=== PATIENT | female | born 1965 | race African-American/Black ===

== ENCOUNTER 2018-08-16 02:01 | Emergency (ER) | payer OTHER ==
[2018-08-16 02:20] VITALS: BP 160/97; PULSE 85; TEMP 98.5; BMI 31.3
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
== END 2018-08-16 03:12 | disposition home or self-care (01) ==
LOC: JER 02:01
DX: S09.93XA Unspecified injury of face, initial encounter (principal); Y04.2XXA Assault by strike against or bumped into by another person, initial encounter; Y93.89 Activity, other specified; Y92.118 Other place in children's home and orphanage as the place of occurrence of the external cause; Y99.0 Civilian activity done for income or pay; Y07.59 Other non-family member, perpetrator of maltreatment and neglect
CPT/HCPCS: 99281-25

== ENCOUNTER 2018-10-07 01:23 | Emergency (ER) | payer OTHER | END 2018-10-07 04:14 | disposition home or self-care (01) | LOC: JER 01:23 ==

== ENCOUNTER 2019-03-21 11:59 | Day surgery (SDC) | payer OTHER ==
[2019-03-14 14:57] VITALS: BMI 31.0
--- NOTE | 2019-03-21 11:54 | HP ---
Satellite [facility] - Chief Complaint Chief Complaint: right knee pain - Past Medical History Allergies/Adverse Reactions: Allergies Allergy/AdvReac Type Severity Reaction Status Date / Time Tetanus Vaccines and Toxoid Allergy Severe Verified 03/14/19 14:48 [Tetanus] - Current Medications Current Medications: Home Medications Medication Instructions Recorded Aspirin 81 mg PO DAILY 03/14/19 Atorvastatin Ca [Lipitor] 40 mg PO DAILY 03/14/19 Chlorthalidone 50 mg PO DAILY 03/14/19 Metformin HCl [Glucophage] 1,000 mg PO DAILY 03/14/19 Satellite Physical Exam - Physical Examination General Appearance: Well Nourished, Well Developed, Alert & Oriented x3 ENT: Clear Lung: Normal air movement Extremities: Other (right knee- +swelling, + ttp ,decr rom , nvi, xrays show grade medial and PF djd) Neurological: Intact, Alert, Oriented Satellite Impression/Plan - Impression/Plan Impression: right knee medial and PF djd Operative Procedure: right emil bicom knee replacement Date to be Performed: 03/21/19
[~2019-03-21 11:59] MED LIST: MAG HYDROX/AL HYDROX/SIMETH 30 ML UNIT-DOSE CUP PO PRN; ONDANSETRON 4 MG/2 ML VIAL IVPUSH PRN
[2019-03-21] MEDS ORDERED: LACTATED RINGERS SOLUTION 1,000 ML IV SCH ×2 (12:00→13:45)
[2019-03-21] MEDS ORDERED: MIDAZOLAM HCL 2 MG/2 ML SINGLE DOSE VIAL ONE ×3 (12:08→13:57)
[2019-03-21] MEDS ORDERED: BUPIVACAINE LIPOSOME/PF (EXPAREL) 266 MG/20 ML VIAL ONE (12:09)
[2019-03-21] MEDS ORDERED: SODIUM CHLORIDE 0.9% P/F 10 ML VIAL IJ ONE (12:09)
[2019-03-21] MEDS ORDERED: CELECOXIB 200 MG CAPSULE PO ONE (12:18)
[2019-03-21] MEDS ORDERED: BUPIVICAINE 0.25%/MORPH PF/KETOROLAC - 51ML DISP.SYRINGE IA ONE ×2 (12:18→14:43)
[2019-03-21] MEDS ORDERED: TRANEXAMIC ACID 1000 MG/10 ML VIAL IVPUSH ONE (12:18)
[2019-03-21] MEDS ORDERED: CEFAZOLIN 2 GM in DEXTROSE 5%-WATER - 50 ML IVPB ONE (12:18)
[2019-03-21] MEDS ORDERED: THROMBIN (RECOMBINANT) 5,000 UNIT VIAL TP ONE (12:31)
[2019-03-21] MEDS ORDERED: GELATIN, ABSORBABLE 12-7MM EACH SPONGE TP ONE (12:31)
[2019-03-21] MEDS ORDERED: ceFAZolin SODIUM 1 GM VIAL ONE ×2 (12:37→14:02)
[2019-03-21] MEDS ORDERED: BUPIVACAINE HCL/PF 0.5% (5MG/ML) 10 ML VIAL ONE (12:44)
[2019-03-21] MEDS ORDERED: ONDANSETRON 4 MG/2 ML VIAL IVPUSH PRN (13:34)
[2019-03-21] MEDS ORDERED: traMADol HCL 50 MG TABLET PO PRN (13:34)
[2019-03-21] MEDS ORDERED: oxyCODONE HCL 5 MG TABLET PO PRN (13:34)
[2019-03-21] MEDS ORDERED: TRANEXAMIC ACID 1000 MG/10 ML VIAL ONE (14:02)
[2019-03-21] MEDS ORDERED: ONDANSETRON 4 MG/2 ML VIAL ONE (14:04)
[2019-03-21] MEDS ORDERED: DEXAMETHASONE SOD PHOSPHATE 4 MG/1 ML VIAL ONE (14:04)
--- NOTE | 2019-03-21 16:14 | OP ---
Operative Note - Note: Operative Date: 03/21/19 (eugene) Pre-Operative Diagnosis: right knee djd Operation: right emil bicompartmental knee replacement Post-Operative Diagnosis: Same as Pre-op Surgeon: Hernando Martinez Italian Teacher: Carlo Del Real Anesthesiologist/RN MED SURG: Renetta Jeffries Anesthesia: Spinal, Local Specimens Removed: bone fragments Estimated Blood Loss (mls): 150
--- NOTE | 2019-03-21 16:52 | OP ---
DATE OF OPERATION: 03/21/2019 PREOPERATIVE DIAGNOSIS: Right knee medial and patellofemoral compartment osteoarthritis. POSTOPERATIVE DIAGNOSIS: Right knee medial and patellofemoral compartment osteoarthritis. OPERATION: Right knee bicompartmental MAKOplasty, partial knee replacement. SURGEON: Hernando Martinez MD CHILD LIFE ASSISTANT: MACIEL Pal ANESTHESIA: Renetta Jeffries CRNA, spinal anesthesia with MAC. An intra-articular injection of 0.25%, 40 mL bupivacaine, 30 mg/1 mL ketorolac, 5 mg/10 mL Duramorph. DRAINS: None. SPECIMEN: Bone and cartilage, right knee. BLOOD LOSS: Minimal. BLOOD GIVEN: None. FLUID REPLACEMENT: 1500 mL Plasma-Lyte. INDICATIONS: This patient is a 53-year-old female with a preoperative diagnosis of significant right knee pain with medial and patellofemoral compartment osteoarthritis. After understanding the potential risks, complications, alternatives, and benefits to surgery versus nonsurgical treatment, the patient elected to undergo this procedure. DESCRIPTION OF PROCEDURE: Patient was brought to the operating room, peripheral IV placed, IV sedation given, 2 gm IV Ancef were given. Spinal anesthesia was induced. MAC anesthesia was induced. She was placed into supine position with a tourniquet around the right upper thigh. Right lower extremity was prepped and draped in a sterile fashion, put into the MAKOplasty knee replacement leg hi in a standard fashion. A longitudinal incision was marked out with a marking pen and the skin incision made with a No. 10 scalpel blade. Subcutaneous hemostasis was achieved with a Bovie cautery. Dissection was done down through the medial knee retinaculum, and a medial parapatellar arthrotomy incision was performed. Self-retaining Weitlaner retractors were placed into the wound. Intra-articular synovial fluid was evacuated. Patient had a tremendous amount of synovitis and fat in the knee itself, and this was removed. This exposed the joint. We put in the check points in the tibia and the femur and registration with the Anke robot was performed. Once this was done, we marked out the distal femur and the proximal tibia with 40 check points and adjusted the preoperative virtual plan appropriately for a better fit and degree of planned ligamentous laxity versus tightness. It all came together quite well. There was excellent range of motion with the appropriate flexion and extension tightness. Next, using the MAKOplasty robot articulated arm, we took out the appropriate amount of cartilage and bony in the femoral trochlea, the distal medial femur, the proximal medial tibia. I also used a clamp, measured to remove 10 mm, and did cut in the undersurface of the patella. I then freehand an additional 2 mm out until it was uniformly 13 mm around. I measured a 35 mm patellar button. It looked good. It fit into the appropriate position, and we drilled 3 holes. The area was copiously irrigated and washed out, trial implants inserted. It was a No. 35 patella, which was 10 mm thick, a No. 4 femoral trochlear component, a No. 4 tibial component, and an 8-mm polyethylene. The leg had an excellent range of motion, no instability. The medial and lateral degree of laxity was perfect. The patella seemed to be tracking quite well in the femoral trochlea. Next, the right lower extremity was elevated, exsanguinated with an Esmarch bandage, the tourniquet inflated to 275 mmHg. Thrombin-soaked Gelfoam was placed onto the exposed cancellous surfaces for hemostasis. On the back table, we mixed 1 bag of Simplex cement, precoated the actual components, which again were a No. 4 femoral trochlea, a No. 35 patella polyethylene button, No. 4 tibial baseplate, and the No 4 femur. We put in the femoral trochlea 1st and packed it in place, removed excess cement then the femoral component doing the same sequence and then the tibial component. We then put in the patella button with the clamp, removed excess cement globally, and put in an 8-mm polyethylene tibial tray for compression. Seem to have excellent range of motion in all planes. No instability but there did seem to be about 1 degree of hyperextension. We put the leg into straight neutral until the cement was dry. I then put in a No. 9 polyethylene implant trial that seemed to be quite good and eliminated the posterior 1-degree of excessive extension. The knee was now in neutral. There was excellent range of motion. No instability. Overall, it fit quite well with no blocked motion. The area was copiously irrigated and washed out. The medial peripatellar arthrotomy, quadriceps, and retinaculum incisions were closed [id number] No. 1 Ti-Cron sutures. The deep dermal layer was closed with 2-0 Vicryl sutures. Final skin reapproximation was done with a running subcuticular 4-0 V-Lock suture. The area was then washed and dried, covered with a 10-inch Aquacel dressing. Tourniquet was up for about 25 minutes. Total operative time about 1 hour. There were no complications during the case. The patient tolerated the procedure quite well. Nannette [id number]
[2019-03-21] MEDS: ACETAMINOPHEN 325 MG TABLET (FP) PO SCH ×4 (17:00→21:23)
[2019-03-21] MEDS: INSULIN SLIDING SCALE (NOVOLOG) 1 VIAL SQ SCH ×3 (17:21→21:37)
[2019-03-21] MEDS ORDERED: ACETAMINOPHEN 325 MG TABLET (FP) ONE (17:44)
[2019-03-21] MEDS: CEFAZOLIN 2 GM/D5W 2 GM/50 ML ML IVPB SCH (21:22)
[2019-03-21] MEDS: oxyCODONE HCL 10 MG SUSTAINED ACTING TABLET PO SCH (21:23)
[2019-03-21] MEDS: SENNOSIDES/DOCUSATE COMBO (SENNA PLUS) TABLET (UD) PO SCH (21:24)
[2019-03-22] MEDS: oxyCODONE HCL 5 MG TABLET PO PRN ×3 (02:12→10:34)
[2019-03-22] MEDS: ACETAMINOPHEN 325 MG TABLET (FP) PO SCH ×2 (02:13→10:32)
[2019-03-22] MEDS: CEFAZOLIN 2 GM/D5W 2 GM/50 ML ML IVPB SCH (05:25)
[2019-03-22] MEDS: INSULIN SLIDING SCALE (NOVOLOG) 1 VIAL SQ SCH ×3 (06:16→11:52)
[2019-03-22 06:43] VITALS: PULSE 56
[2019-03-22] MEDS ORDERED: metFORMIN HCL 500 MG TABLET (FP) PO SCH (07:00)
[2019-03-22] MEDS ORDERED: ASPIRIN 325 MG TABLET PO SCH (08:00)
--- NOTE | 2019-03-22 09:01 | PN ---
Progress Note (short form) - Note Progress Note: Ortho Pt seen and examined s/p left emil bicom knee replacement pod #1 Selected Entries 03/22/19 06:00 Temperature 98.5 F Pulse Rate 56 L Respiratory 18 Rate Blood Pressure 120/75 dressing c/d/i, calf soft, nt rom 0-30, nvi a/p PT dvt ppx pain control d/c home today f/u in 1 week
[2019-03-22 09:03] VITALS: BP 137/77; TEMP 97.8
--- NOTE | 2019-03-22 09:03 | DS ---
Physical Examination Vital Signs: Vital Signs Temperature 98.5 F 03/22/19 06:00 Pulse Rate 56 L 03/22/19 06:00 Respiratory Rate 18 03/22/19 06:00 Blood Pressure 120/75 03/22/19 06:00 O2 Sat by Pulse Oximetry (%) 98 03/22/19 06:00 Discharge Summary Problems reviewed: Yes Reason For Visit: OSTEOARTHRITIS Procedures: Principal: right emil bicom knee replacement Hospital Course: admitted for elective right emil bicom knee replacement, post-op as per protocol , stable for d/c Condition: Good - Instructions Diet, Activity, Other Instructions: Post-op Instructions-Partial Knee Replacement Call the office for a follow-up appointment in 1 week - [phone] Aspirin 325mg daily for 6 weeks. Pain medication was sent into your pharmacy. Apply Graduated Compression Stockings (TEDs) to both lower extremities- remove daily for hygiene ONLY Apply Sequential Compression Device (SCDs) to both Lower extremities remove for PT and hygiene ONLY Apply cold packs to affected area for 15 minutes every 2 hours. Physical Therapist will come to your home for the first 5 days. You will be set up with outpatient PT at your first post-operative visit. Patient may ambulate as tolerated-encourage self care (at least every 2-3 hours while awake) with walker or cane Maintain Aquacel (waterproof) dressing to operative wound (will be removed by surgeon at first office visit) Shower with Aquacel dressing in place-if Aquacel integrity compromised, remove and apply dry sterile dressing and notify Orthopedist. DO NOT SHOWER unless Orthopedists approves without Aquacel dressing CONTACT THE OFFICE FOR ANY CHANGE IN YOUR CONDITION (for example-fever greater than 102 degrees, excessive bleeding from operative site, purulent drainage, severe swelling or pain) GO TO THE EMERGENCY ROOM IF THERE IS A MEDICAL EMERGENCY Knee Precautions: * Keep a rolled towel under affected heel while in bed or chair (to keep knee in extension) * Keep affected leg elevated except during mealtimes * DO NOT PLACE PILLOW UNDER AFFECTED KNEE * If you have any questions, please do not hesitate to call the office - . Referrals: Hernando Martinez MD [Staff Physician] - - Home Medications Comprehensive Discharge Medication List: Ambulatory Orders Atorvastatin Ca [Lipitor] 40 mg PO DAILY 03/14/19 Chlorthalidone 50 mg PO DAILY 03/14/19 Metformin HCl [Glucophage] 1,000 mg PO DAILY 03/14/19 Aspirin [ASA -] 325 mg PO DAILY@0800 tablet 03/21/19 Oxycodone HCl/Acetaminophen [Percocet 5-325 mg Tablet -] 1 - 2 tab PO Q6H #50 tab MDD 8 03/21/19
[2019-03-22] MEDS ORDERED: CHLORTHALIDONE 25 MG TABLET PO SCH (10:00)
[2019-03-22] MEDS ORDERED: MULTIVITAMINS (DAILY MVI) TABLET (FP) PO SCH (10:00)
[2019-03-22] MEDS ORDERED: ATORVASTATIN CA 40 MG TABLET (FP) PO SCH (10:00)
[2019-03-22] MEDS ORDERED: PANTOPRAZOLE 40 MG TABLET (FP) PO SCH (10:00)
[2019-03-22] MEDS: oxyCODONE HCL 10 MG SUSTAINED ACTING TABLET PO SCH (10:30)
[2019-03-22] MEDS: SENNOSIDES/DOCUSATE COMBO (SENNA PLUS) TABLET (UD) PO SCH (10:32)
== END 2019-03-22 11:58 | disposition home or self-care (01) ==
LOC: FASUSAT 11:59 → FM/S 17:35 → FASUSAT 03-22 11:58
PROVIDERS: ATTEND Orthopaedic Surgery
PROC: 8E0YXBZ Computer Assisted Procedure of Lower Extremity (ICD-10-PCS; 2019-03-21)
PROC: 0QRD0JZ Replacement of Right Patella with Synthetic Substitute, Open Approach (ICD-10-PCS; 2019-03-21)
PROC: 8E0YXBZ Computer Assisted Procedure of Lower Extremity (ICD-10-PCS; 2019-03-21)
PROC: 8E0Y0CZ Robotic Assisted Procedure of Lower Extremity, Open Approach (ICD-10-PCS; 2019-03-21)
PROC: 0SRC0L9 Replacement of Right Knee Joint with Medial Unicondylar Synthetic Substitute, Cemented, Open Approach (ICD-10-PCS; principal; 2019-03-21 14:20)
DX: M17.11 Unilateral primary osteoarthritis, right knee (principal)
CPT/HCPCS: 20985; 27438; 27446; C1776; S2900; 73560-TC-RT-FY; 82962; 94760; 97116-GP; 97161-GP

== ENCOUNTER 2019-03-25 13:55 | Inpatient (IN) | payer OTHER ==
[2019-03-25] MEDS ORDERED: SODIUM CHLORIDE 1,000 ML IV STA (15:58)
[2019-03-25] MEDS ORDERED: ONDANSETRON 4 MG/2 ML VIAL IVPB ONE (15:58)
[2019-03-25] MEDS ORDERED: ONDANSETRON 4 MG/2 ML VIAL ONE (16:17)
--- NOTE | 2019-03-25 16:37 | PDOC ---
Documentation entered by Lotus Goldsmith SCRIBE, acting as scribe for Sarthak Winter MD. Sarthak Winter MD: This documentation has been prepared by the Agus brown Joy, SCRIBE, under my direction and personally reviewed by me in its entirety. I confirm that the documentation accurately reflects all work, treatment, procedures, and medical decision making performed by me. History of Present Illness - General Chief Complaint: Redness To Affected Area Stated Complaint: RIGHT KNEE REDNESS Time Seen by Provider: 03/25/19 13:58 History Source: Patient Exam Limitations: No Limitations - History of Present Illness Initial Comments: 03/25/19 16:21 The patient is a 53 year old female with significant past medical history of DM and HTN, POD #4 from R knee arthroplasty, who presents to the ED with a fever and redness/swelling to her R knee. As per patient, she woke up last night with a fever. She took her temperature at 3 am last night, tmax: 102.2 F and at 10: 30 am today 101 F. Patient took Tylenol (500 mg) and aspirin with no relief. Pt states that she did not have any redness or swelling to her knee yesterday and was doing well post-operatively until this morning. Denies shortness of breath, chest pain, vomiting. Denies any other symptoms. Allergies: Tetanus vaccines and toxoid Surgical Hx: Partial right knee replacement (Dr. Martinez), appendectomy, cholecystectomy, partial hysterectomy, and partial colon resection. Past History - Past Medical History Allergies/Adverse Reactions: Allergies Allergy/AdvReac Type Severity Reaction Status Date / Time Tetanus Vaccines and Toxoid Allergy Severe Verified 03/25/19 13:57 [Tetanus] Home Medications: Ambulatory Orders Atorvastatin Ca [Lipitor] 40 mg PO DAILY 03/14/19 Metformin HCl [Glucophage] 1,000 mg PO DAILY 03/14/19 Aspirin [ASA -] 325 mg PO DAILY@0800 tablet 03/21/19 Oxycodone HCl/Acetaminophen [Percocet 5-325 mg Tablet -] 1 - 2 tab PO Q6H #50 tab MDD 8 03/21/19 Carvedilol 3.125 mg PO BID 03/25/19 Losartan Potassium 25 mg PO DAILY 03/25/19 Anemia: No Asthma: No Cancer: No Cardiac Disorders: No CVA: No COPD: No CHF: No Dementia: No Diabetes: Yes GI Disorders: Yes (HX INTESTINAL OBSTR) Disorders: No HTN: Yes Hypercholesterolemia: Yes Liver Disease: No Seizures: No Thyroid Disease: No - Surgical History Abdominal Surgery: Yes (colectomy w/clips) Appendectomy: Yes Cardiac Surgery: No Cholecystectomy: Yes Lung Surgery: No Neurologic Surgery: No Orthopedic Surgery: No - Immunization History Immunization Up to Date: Yes - Psycho Social/Smoking Cessation Hx Smoking Status: No Smoking History: Never smoked Have you smoked in the past 12 months: No Number of Cigarettes Smoked Daily: 0 If you are a former smoker, when did you quit?: 2001 Information on smoking cessation initiated: No Hx Alcohol Use: No Drug/Substance Use Hx: No Substance Use Type: None Hx Substance Use Treatment: No Review of Systems - Review of Systems Able to Perform ROS?: Yes Comments:: 03/25/19 16:21 GENERAL/CONSTITUTIONAL: +Fever, chills. No weakness. HEAD, EYES, EARS, NOSE AND THROAT: No change in vision. No ear pain or discharge. No sore throat. CARDIOVASCULAR: No chest pain, no shortness of breath, no loss of consciousness RESPIRATORY: No cough, wheezing, or hemoptysis. GASTROINTESTINAL: +Nausea. No vomiting, diarrhea or constipation. GENITOURINARY: No dysuria, frequency, or change in urination. MUSCULOSKELETAL: +Right knee pain, swelling and redness. No neck or back pain. SKIN: No rash NEUROLOGIC: No vertigo, no change in strength/sensation. ENDOCRINE: No increased thirst. No abnormal weight change. HEMATOLOGIC/LYMPHATIC: No anemia, easy bleeding, or history of blood clots. ALLERGIC/IMMUNOLOGIC: No hives or skin allergy. *Physical Exam - Vital Signs Last Vital Signs Temp Pulse Resp BP Pulse Ox 98.2 F 76 18 137/90 99 03/25/19 13:55 03/25/19 13:55 03/25/19 13:55 03/25/19 13:55 03/25/19 13:55 - Physical Exam Comments: 03/25/19 16:21 GENERAL: Awake, alert, and fully oriented, in no acute distress. HEAD: No signs of trauma EYES: PERRLA, EOMI, sclera anicteric, conjunctiva clear ENT: Auricles normal inspection, hearing grossly normal, nares patent, oropharynx clear without exudates. Moist mucosa NECK: Nontender, no stepoffs, Normal ROM, supple, no lymphadenopathy, JVD, or masses LUNGS: Breath sounds equal, clear to auscultation bilaterally. No wheezes, and no crackles HEART: Regular rate and rhythm, normal S1 and S2, no murmurs, rubs or gallops ABDOMEN: Soft, nontender, normoactive bowel sounds. No guarding, no rebound. No masses EXTREMITIES: + R knee with surgical incision, no drainage, + surrounding erythema and edema, ROM slightly limited 2/2 pain NEUROLOGICAL: Cranial nerves II through XII intact. 5/5 strength and sensation in all extremities, Normal speech, normal gait, normal cerebellar function SKIN: Warm, Dry, normal turgor, no rashes or lesions noted. ED Treatment Course - LABORATORY CBC & Chemistry Diagram: 03/25/19 16:50 03/25/19 16:50 Medical Decision Making - Medical Decision Making 03/25/19 16:40 53 F, POD 4 from R knee arthroplasty, presenting with redness and swelling around surgical incision. - Labs, cultures - c/s Dr. Martinez - IV abx 03/25/19 18:[address] Painter, who agrees with plan to admit for IV abx. 03/25/19 18:[address] Villa Discharge - Discharge Information Problems reviewed: Yes Clinical Impression/Diagnosis: Post op infection Condition: Stable - Admission Yes - Follow up/Referral - Patient Discharge Instructions - Post Discharge Activity
[2019-03-25 17:10] LABS: HEMATOCRIT 36.9 % (32.4-45.2); MEAN PLT VOLUME 8.4 fl (7.5-11.1)
[2019-03-25 17:11] LABS: BASO % 0.7 % (0-2.0); EOS % 7.9 % (0-4.5); HEMOGLOBIN 12.4 GM/dl (10.7-15.3); LYMPH % 29.1 % (8-40); MCH 29.1 pg (25.7-33.7); MCHC 33.6 g/dl (32.0-36.0); MEAN CELL VOLUME 86.7 fl (80-96); MONO % 4.8 % (3.8-10.2); NEUT % 57.5 % (42.8-82.8); PLATELET COUNT 390 K/MM3 (134-434); RBC 4.26 M/mm3 (3.60-5.2); RDW 11.8 % (11.6-15.6)
[2019-03-25 17:25] LABS: ALBUMIN 3.6 g/dl (3.4-5.0); BILIRUBIN,TOTAL 0.9 mg/dl (0.2-1); CREATININE 0.7 mg/dl (0.55-1.3); TOT PROT 7.4 g/dl (6.4-8.2)
[2019-03-25 17:40] LABS: ACTIVATED PTT 31.8 SECONDS (25.2-36.5); INR 1.2 (0.82-1.09); PROTHROMBIN TIME (PATIENT) 13.4 SEC (10.2-13.0)
[2019-03-25 17:59] LABS: VENOUS PC02 50.2 mmHg (38-52); VENOUS PH 7.37 (7.31-7.41); VENOUS PO2 < 49 mmHg (28-48)
[2019-03-25] MEDS ORDERED: PIPERACILLIN/TAZOB 4.5 GM 4.5 GM/100 ML BAG IVPB ONE (18:03)
[2019-03-25] MEDS ORDERED: VANCOMYCIN 1 GM in D5W (PRE-DOCKED) 1,000 MG/250 ML IVPB ONE (18:03)
[2019-03-25 18:05] LABS: EPITHELIAL CELLS RARE /hpf
[2019-03-25] MEDS ORDERED: PIPERACILLIN/TAZOBACTAM 4.5 GM VIAL IVPB ONE (18:17)
[2019-03-25] MEDS ORDERED: VANCOMYCIN 1,000 MG VIAL (RESTRICTED TO ID ONLY) ONE (18:17)
[2019-03-25 18:18] LABS: CALCIUM 9.3 mg/dL (8.5-10.1); POTASSIUM 4.2 mmol/L (3.5-5.1)
[2019-03-25] MEDS ORDERED: SODIUM CHLORIDE 1,000 ML IV SCH (19:15)
[2019-03-25 20:23] VITALS: BMI 32.3
[2019-03-25] MEDS: HEPARIN NA (PORCINE) 5,000 UNITS/ML 1ML VIAL SQ SCH (21:45)
[2019-03-25] MEDS: CARVEDILOL 3.125 MG TABLET (FP) PO SCH (21:45)
[2019-03-25] MEDS: ATORVASTATIN CA 40 MG TABLET (FP) PO SCH (21:46)
--- NOTE | 2019-03-25 22:50 | HP ---
Admitting History and Physical - Past Medical History ...LMP Comment: 53 YEARS OLD - Smoking History Smoking history: Never smoked Have you smoked in the past 12 months: No Aproximately how many cigarettes per day: 0 If you are a former smoker, when did you quit?: 2001 - Alcohol/Substance Use Hx Alcohol Use: Yes (OCCASIONAL) Home Medications - Allergies Allergies/Adverse Reactions: Allergies Allergy/AdvReac Type Severity Reaction Status Date / Time Tetanus Vaccines and Toxoid Allergy Severe Verified 03/25/19 13:57 [Tetanus] - Home Medications Home Medications: Ambulatory Orders Atorvastatin Ca [Lipitor] 40 mg PO DAILY 03/14/19 Metformin HCl [Glucophage] 1,000 mg PO DAILY 03/14/19 Aspirin [ASA -] 325 mg PO DAILY@0800 tablet 03/21/19 Oxycodone HCl/Acetaminophen [Percocet 5-325 mg Tablet -] 1 - 2 tab PO Q6H #50 tab MDD 8 03/21/19 Carvedilol 3.125 mg PO BID 03/25/19 Losartan Potassium 25 mg PO DAILY 03/25/19 Physical Examination Vital Signs: Vital Signs Temperature 98.0 F 03/25/19 20:15 Pulse Rate 68 03/25/19 20:15 Respiratory Rate 18 03/25/19 20:15 Blood Pressure 121/74 03/25/19 20:15 O2 Sat by Pulse Oximetry (%) 98 03/25/19 20:15 Labs: CBC, BMP 03/25/19 16:50 03/25/19 16:50
--- NOTE | 2019-03-25 23:18 | HP ---
Admitting History and Physical - Admission Chief Complaint: right knee pain History of Present Illness: 53 year old female PMHx HTN, DM2, recent right knee arthroplasty and partial replacement, POD #4, presents with fevers, right knee redness and warmth since yesterday. She states tmax was 102. Had no problem with ambulation. Denies CP, SOB, palpitations, n/v/d. PMHx: as above PSHx: Partial right knee replacement (Dr. Martinez) appendectomy cholecystectomy partial hysterectomy partial colon resection History Source: Patient Limitations to Obtaining History: No Limitations - Past Medical History Cardiovascular: Yes: HTN ...LMP Comment: 53 YEARS OLD Endocrine: Yes: Diabetes Mellitus - Past Surgical History Past Surgical History: Yes: Appendectomy, Arthrosocopy, Cholecystectomy, Colectomy, Hysterectomy - Smoking History Smoking history: Never smoked Have you smoked in the past 12 months: No Aproximately how many cigarettes per day: 0 If you are a former smoker, when did you quit?: 2001 - Alcohol/Substance Use Hx Alcohol Use: Yes (OCCASIONAL) History of Substance Use: reports: None - Social History Usual Living Arrangement: Yes: Alone Home Medications - Allergies Allergies/Adverse Reactions: Allergies Allergy/AdvReac Type Severity Reaction Status Date / Time Tetanus Vaccines and Toxoid Allergy Severe Verified 03/25/19 13:57 [Tetanus] - Home Medications Home Medications: Ambulatory Orders Atorvastatin Ca [Lipitor] 40 mg PO DAILY 03/14/19 Metformin HCl [Glucophage] 1,000 mg PO DAILY 03/14/19 Aspirin [ASA -] 325 mg PO DAILY@0800 tablet 03/21/19 Oxycodone HCl/Acetaminophen [Percocet 5-325 mg Tablet -] 1 - 2 tab PO Q6H #50 tab MDD 8 03/21/19 Carvedilol 3.125 mg PO BID 03/25/19 Losartan Potassium 25 mg PO DAILY 03/25/19 Family Medical History Family History: Unremarkable Review of Systems - Review of Systems Constitutional: reports: Chills, Fever Eyes: reports: No Symptoms HENT: reports: No Symptoms Neck: reports: No Symptoms Cardiovascular: reports: No Symptoms Respiratory: reports: No Symptoms Gastrointestinal: reports: No Symptoms Genitourinary: reports: No Symptoms Breasts: reports: No Symptoms Reported Musculoskeletal: reports: No Symptoms Integumentary: reports: No Symptoms Neurological: reports: No Symptoms Endocrine: reports: No Symptoms Hematology/Lymphatic: reports: No Symptoms Psychiatric: reports: No Symptoms Physical Examination Vital Signs: Vital Signs Temperature 98.5 F 03/25/19 22:00 Pulse Rate 58 L 03/25/19 22:00 Respiratory Rate 18 03/25/19 22:00 Blood Pressure 119/60 03/25/19 22:00 O2 Sat by Pulse Oximetry (%) 99 03/25/19 22:00 Constitutional: Yes: Well Nourished, No Distress, Calm Eyes: Yes: WNL, Conjunctiva Clear, EOM Intact HENT: Yes: WNL, Atraumatic, Normocephalic Neck: Yes: WNL, Supple, Trachea Midline Cardiovascular: Yes: WNL, Regular Rate and Rhythm Respiratory: Yes: WNL, Regular, CTA Bilaterally Gastrointestinal: Yes: WNL, Normal Bowel Sounds, Soft Musculoskeletal: Yes: Other (right knee in stocking, warm, pain to palpation, no draniage or open wound, erythema, leg leg unremarkable, good pulses bilaterally) Edema: No Peripheral Pulses WNL: Yes Neurological: Yes: WNL, Alert, Oriented Labs: CBC, BMP 03/25/19 16:50 03/25/19 16:50 Imaging - Results Chest X-ray: Report Reviewed, Image Reviewed Problem List - Problems (1) DM2 (diabetes mellitus, type 2) Code(s): E11.9 - TYPE 2 DIABETES MELLITUS WITHOUT COMPLICATIONS (2) Post op infection Code(s): T81.40XA - INFECTION FOLLOWING A PROCEDURE, UNSPECIFIED, INIT (3) HTN (hypertension) Code(s): I10 - ESSENTIAL (PRIMARY) HYPERTENSION Assessment/Plan 53 year old female, POD 4 from R knee arthroplasty, presenting with redness and swelling around surgical incision 1) Post op knee infection, r/o septic joint -pancultured -broad spectrum abx -ID and ortho eval -pain control -IVF -right knee xray -resume asa -heparin dvt ppx 2) DM2 resume home meds ISS needs tight BS control 3) HTN resume home meds
[2019-03-26] MEDS ORDERED: PIPERACILLIN/TAZOB 3.375 GM 3.375 GM in DEXTROSE 5%-WATER - 50 ML IVPB SCH (02:00)
[2019-03-26] MEDS ORDERED: DEXTROSE 5%-WATER - 50 ML IVPB ONE ×2 (02:01→09:44)
[2019-03-26] MEDS ORDERED: PIPERACILLIN/TAZOBACTAM 3.375 GM VIAL IVPB ONE ×2 (02:01→09:43)
[2019-03-26] MEDS: PIPERACILLIN/TAZOB 3.375 GM 3.375 GM in DEXTROSE 5%-WATER - 50 ML IVPB SCH ×2 (02:10→10:29)
[2019-03-26] MEDS ORDERED: metFORMIN HCL 500 MG TABLET (FP) PO SCH (07:00)
[2019-03-26] MEDS ORDERED: INSULIN SLIDING SCALE (NOVOLOG) 1 VIAL SQ SCH ×2 (07:00)
[2019-03-26] MEDS: ASPIRIN 325 MG TABLET PO SCH (08:19)
[2019-03-26 08:38] LABS: BASO % 0.7 % (0-2.0); EOS % 8.5 % (0-4.5); HEMATOCRIT 31.3 % (32.4-45.2); HEMOGLOBIN 10.2 GM/dl (10.7-15.3); LYMPH % 28.3 % (8-40); MCH 28.8 pg (25.7-33.7); MCHC 32.5 g/dl (32.0-36.0); MEAN CELL VOLUME 88.4 fl (80-96); MEAN PLT VOLUME 8.1 fl (7.5-11.1); MONO % 4.4 % (3.8-10.2); NEUT % 58.1 % (42.8-82.8); PLATELET COUNT 333 K/MM3 (134-434); RBC 3.54 M/mm3 (3.60-5.2); WHITE BLOOD COUNT 7.6 K/mm3 (4.0-10.8)
--- NOTE | 2019-03-26 08:54 | PN ---
Physical Exam: SUBJECTIVE: Patient seen and examined at bedside., c/o Rt knee itching. Denies fever, chills, cp, sob, palpitations,abdominal pain, N/V/D or urinary symptoms. OBJECTIVE: Vital Signs Period Temp Pulse Resp BP Sys/Rodríguez Pulse Ox Last 24 Hr 98.0 F-98.5 F 58-76 16-19 115-145/56-90 96-99 GENERAL: The patient is awake, alert, and fully oriented, in no acute distress. HEAD: Normal with no signs of trauma. EYES: PERRL, extraocular movements intact, sclera anicteric, conjunctiva clear. No ptosis. ENT: Ears normal, nares patent, oropharynx clear without exudates, moist mucous membranes. NECK: Trachea midline, full range of motion, supple. LUNGS: Breath sounds equal, clear to auscultation bilaterally, no wheezes, no crackles, no accessory muscle use. HEART: Regular rate and rhythm, S1, S2 without murmur, rub or gallop. ABDOMEN: Soft, nontender, nondistended, normoactive bowel sounds, no guarding, no rebound, no hepatosplenomegaly, no masses. EXTREMITIES: 2+ pulses, warm, well-perfused, no edema. RT knee dsg intact NEUROLOGICAL: Cranial nerves II through XII grossly intact. Normal speech, gait not observed. PSYCH: Normal mood, normal affect. SKIN: Warm, dry, normal turgor, no rashes or lesions noted Laboratory Results - last 24 hr 03/25/19 03/25/19 03/25/19 16:50 16:50 16:50 WBC 9.0 RBC 4.26 Hgb 12.4 Hct 36.9 MCV 86.7 MCH 29.1 MCHC 33.6 RDW 11.8 Plt Count 390 MPV 8.4 Absolute Neuts (auto) 5.2 Neutrophils % 57.5 Lymphocytes % 29.1 Monocytes % 4.8 Eosinophils % 7.9 H Basophils % 0.7 PT with INR 13.4 H INR 1.20 PTT (Actin FS) 31.8 VBG pH POC VBG pCO2 POC VBG pO2 VBG HCO3 VBG O2 Sat (Slade) VBG Base Excess Sodium 135 L Potassium 4.2 Chloride 102 Carbon Dioxide 29 Anion Gap 4 L BUN 15.0 Creatinine 0.7 Est GFR (CKD-EPI)AfAm 115.45 Est GFR (CKD-EPI)NonAf 99.62 POC Glucometer Random Glucose 127 H Lactic Acid Calcium 9.3 Total Bilirubin 0.9 AST 79 H ALT 41 Alkaline Phosphatase 138 H Total Protein 7.4 Albumin 3.6 Urine Color Urine Appearance Urine pH Urine Protein Urine Glucose (UA) Urine Ketones Urine Blood Urine Nitrite Urine Bilirubin Urine Urobilinogen Ur Leukocyte Esterase Urine RBC Urine WBC Ur Transition Epith Cell Urine Bacteria 03/25/19 03/25/19 03/25/19 16:50 16:50 17:26 WBC RBC Hgb Hct MCV MCH MCHC RDW Plt Count MPV Absolute Neuts (auto) Neutrophils % Lymphocytes % Monocytes % Eosinophils % Basophils % PT with INR INR PTT (Actin FS) VBG pH 7.37 POC VBG pCO2 50.2 POC VBG pO2 < 49 H VBG HCO3 28.6 VBG O2 Sat (Slade) 63.1 L VBG Base Excess 3.1 H Sodium Potassium Chloride Carbon Dioxide Anion Gap BUN Creatinine Est GFR (CKD-EPI)AfAm Est GFR (CKD-EPI)NonAf POC Glucometer Random Glucose Lactic Acid 1.5 Calcium Total Bilirubin AST ALT Alkaline Phosphatase Total Protein Albumin Urine Color Yellow Urine Appearance Clear Urine pH 5.0 Urine Protein Negative Urine Glucose (UA) Negative Urine Ketones Negative Urine Blood Trace-intact Urine Nitrite Negative Urine Bilirubin Negative Urine Urobilinogen 0.2 Ur Leukocyte Esterase Negative Urine RBC 2-5 Urine WBC 0-2 Ur Transition Epith Cell Rare Urine Bacteria Rare 03/26/19 06:18 WBC RBC Hgb Hct MCV MCH MCHC RDW Plt Count MPV Absolute Neuts (auto) Neutrophils % Lymphocytes % Monocytes % Eosinophils % Basophils % PT with INR INR PTT (Actin FS) VBG pH POC VBG pCO2 POC VBG pO2 VBG HCO3 VBG O2 Sat (Slade) VBG Base Excess Sodium Potassium Chloride Carbon Dioxide Anion Gap BUN Creatinine Est GFR (CKD-EPI)AfAm Est GFR (CKD-EPI)NonAf POC Glucometer 132 Random Glucose Lactic Acid Calcium Total Bilirubin AST ALT Alkaline Phosphatase Total Protein Albumin Urine Color Urine Appearance Urine pH Urine Protein Urine Glucose (UA) Urine Ketones Urine Blood Urine Nitrite Urine Bilirubin Urine Urobilinogen Ur Leukocyte Esterase Urine RBC Urine WBC Ur Transition Epith Cell Urine Bacteria Active Medications Generic Name Dose Route Start Last Admin Trade Name Freq PRN Reason Stop Dose Admin Aspirin 325 mg 03/26/19 08:00 Asa - PO DAILY@0800 RAZ Atorvastatin Calcium 40 mg 03/25/19 22:00 03/25/19 21:46 Lipitor - PO Not Given HS RAZ Carvedilol 3.125 mg 03/25/19 22:00 03/25/19 21:45 Coreg - PO 3.125 mg BID RAZ Administration Heparin Sodium (Porcine) 5,000 unit 03/25/19 22:00 03/25/19 21:45 Heparin - SQ 5,000 unit BID RAZ Administration Sodium Chloride 1,000 mls @ 75 mls/hr 03/25/19 19:15 03/25/19 22:10 Normal Saline - IV 75 mls/hr ASDIR RAZ Administration Piperacillin Sod/Tazobactam 50 mls @ 100 mls/hr 03/26/19 02:00 Sod 3.375 gm/ Dextrose IVPB Q8H-IV RAZ Protocol Piperacillin Sod/Tazobactam 50 mls @ 100 mls/hr 03/26/19 02:00 03/26/19 02:10 Sod 3.375 gm/ Dextrose IVPB 03/26/19 18:29 100 mls/hr Q8H-IV RAZ Administration Protocol Insulin Aspart 1 vial 03/26/19 07:00 03/26/19 06:36 Novolog Vial Sliding Scale - SQ Not Given TIDAC [facility] Protocol Losartan Potassium 25 mg 03/26/19 10:00 Cozaar - PO DAILY [facility] Metformin HCl 1,000 mg 03/26/19 07:00 03/26/19 06:35 Glucophage - PO 1,000 mg ACBK RAZ Administration Oxycodone/Acetaminophen 1 combo 03/25/19 19:03 03/26/19 02:07 Percocet 5/325 - PO 1 combo Q6H PRN Administration PAIN LEVEL 4 - 6 ASSESSMENT/PLAN: 53 year old female PMHx HTN, HDL,DM2, recent right knee arthroplasty and partial replacement, admitted with post-op infection. * Post op knee infection, r/o septic joint - BC done, report pending - afebrile with leukocytosis, normal lactic acid - ESR pending - on Zosyn - ID consult requested - ortho consulted -pain control -Rt knee xray- Swelling noted -resume asa -abnormal ESR, CRP *DM2 -will hold off home diabetic meds -FS AC& HS - Insulin sliding scale - carb consistent diet *HTN -resume home meds * HDL - will resume on home dose Statin * Hyponatremia- resolved - s/p IVF * Anemia - likely dilutional - no overt signs of bleeding noted * VTE: Heparin SQ * F/E/N: Carb consistent, low salt diet - replace electrolytes as needed Visit type - Emergency Visit Emergency Visit: Yes ED Registration Date: 03/25/19 Care time: The patient presented to the Emergency Department on the above date and was hospitalized for further evaluation of their emergent condition. - New Patient This patient is new to me today: Yes Date on this admission: 03/26/19 - Critical Care Critical Care patient: No
[2019-03-26 09:48] LABS: CREATININE 0.7 mg/dl (0.55-1.3)
[2019-03-26] MEDS: CARVEDILOL 3.125 MG TABLET (FP) PO SCH ×2 (10:27→21:17)
[2019-03-26] MEDS: HEPARIN NA (PORCINE) 5,000 UNITS/ML 1ML VIAL SQ SCH ×2 (10:27→21:17)
[2019-03-26] MEDS: LOSARTAN POTASSIUM 25 MG TABLET PO SCH (10:28)
[2019-03-26 10:58] LABS: CALCIUM 8.6 mg/dL (8.5-10.1); POTASSIUM 4.1 mmol/L (3.5-5.1)
--- NOTE | 2019-03-26 11:17 | CONSULT ---
Consult - History of Present Illness Chief Complaint: right knee pain History of Present Illness: 53y/o female 5 days s/p right partial knee replacement c/o increased pain and swelling in the knee which began 1 day ago. She came to the ER and was started on IV abx. She states she is feeling a little better since last night. denies fevers or chills. Pain in manageable. - Past Medical History Cardio/Vascular: Yes: HTN ...LMP Comment: 53 YEARS OLD Endocrine: Yes: Diabetes Mellitus - Past Surgical History Past Surgical History: Yes: Appendectomy, Arthrosocopy, Cholecystectomy, Colectomy, Hysterectomy - Alcohol/Substance Use Hx Alcohol Use: Yes (OCCASIONAL) History of Substance Use: reports: None - Smoking History Smoking history: Never smoked Have you smoked in the past 12 months: No Aproximately how many cigarettes per day: 0 If you are a former smoker, when did you quit?: 2001 Home Medications - Allergies Allergies/Adverse Reactions: Allergies Allergy/AdvReac Type Severity Reaction Status Date / Time Tetanus Vaccines and Toxoid Allergy Severe Verified 03/25/19 13:57 [Tetanus] - Home Medications Home Medications: Ambulatory Orders Atorvastatin Ca [Lipitor] 40 mg PO DAILY 03/14/19 Metformin HCl [Glucophage] 1,000 mg PO DAILY 03/14/19 Aspirin [ASA -] 325 mg PO DAILY@0800 tablet 03/21/19 Oxycodone HCl/Acetaminophen [Percocet 5-325 mg Tablet -] 1 - 2 tab PO Q6H #50 tab MDD 8 03/21/19 Carvedilol 3.125 mg PO BID 03/25/19 Losartan Potassium 25 mg PO DAILY 03/25/19 Review of Systems - Review of Systems Constitutional: reports: No Symptoms Eyes: reports: No Symptoms HENT: reports: No Symptoms Neck: reports: No Symptoms Cardiovascular: reports: No Symptoms Respiratory: reports: No Symptoms Gastrointestinal: reports: No Symptoms Genitourinary: reports: No Symptoms Breasts: reports: No Symptoms Reported Musculoskeletal: reports: Extremity Pain Integumentary: reports: No Symptoms Neurological: reports: No Symptoms Endocrine: reports: No Symptoms Hematology/Lymphatic: reports: No Symptoms Psychiatric: reports: No Symptoms Physical Exam Vital Signs: Vital Signs Temperature 98.1 F 03/26/19 10:00 Pulse Rate 65 03/26/19 10:00 Respiratory Rate 18 03/26/19 10:00 Blood Pressure 123/65 03/26/19 10:00 O2 Sat by Pulse Oximetry (%) 97 03/26/19 10:00 Constitutional: Yes: Well Nourished, No Distress, Calm Musculoskeletal: Yes: Other (Right knee: Mild edema of the right knee. There is very mild redness laterally along the knee. Scant drainage on dressing. No active drainage. Incision healing nicely. Diffuse tenderness anteriorly along the knee. Pain with motion but motion is smooth. Compartments soft. Calf nontender. NVID.) Labs: CBC, BMP 03/26/19 08:27 03/26/19 08:27 Assessment/Plan #1 POD #5 s/p R PKA with increased pain and swelling -Continue IV ABX. -Pain control -WBAT -Dr. Martinez/Madina aware. Will see patient tomorrow
--- NOTE | 2019-03-26 13:31 | CON.ID ---
Consult - History of Present Illness History of Present Illness: 53 y.o. female with PMH of DM (diagnosed 1 month ago), HTN, bowel obstruction s/ p partial colectomy (2001), and OA s/p RT Partial knee replacement (POD#5) who presents with c/o of fever/chills (102.2F at home) with severe Rt knee pain/ swelling/erythema that she developed early in a.m. prior to arrival in ER. Pt states she was doing well after her operation. She describes the pain as being severe especially with movement relieved with Percocet. In the ER she was afebrile, without leukocytosis and with normal vitals. She denies having any other specific complaints. Currently she is alert, remains afebrile, and her pain is controlled after taking pain medication this a.m. - History Source History Provided By: Patient Limitations to Obtaining History: No Limitations - Past Medical History Cardio/Vascular: Yes: HTN Gastrointestinal: Yes: Other (bowel obstruction) ...LMP Comment: 53 YEARS OLD Endocrine: Yes: Diabetes Mellitus - Past Surgical History Past Surgical History: Yes: Appendectomy, Arthrosocopy, Cholecystectomy, Colectomy, Hysterectomy - Alcohol/Substance Use Hx Alcohol Use: Yes (OCCASIONAL) History of Substance Use: reports: None - Smoking History Smoking history: Never smoked Have you smoked in the past 12 months: No Aproximately how many cigarettes per day: 0 If you are a former smoker, when did you quit?: 2001 Home Medications - Allergies Allergies/Adverse Reactions: Allergies Allergy/AdvReac Type Severity Reaction Status Date / Time Tetanus Vaccines and Toxoid Allergy Severe Verified 03/25/19 13:57 [Tetanus] - Home Medications Home Medications: Ambulatory Orders Atorvastatin Ca [Lipitor] 40 mg PO DAILY 03/14/19 Metformin HCl [Glucophage] 1,000 mg PO DAILY 03/14/19 Aspirin [ASA -] 325 mg PO DAILY@0800 tablet 03/21/19 Oxycodone HCl/Acetaminophen [Percocet 5-325 mg Tablet -] 1 - 2 tab PO Q6H #50 tab MDD 8 03/21/19 Carvedilol 3.125 mg PO BID 03/25/19 Losartan Potassium 25 mg PO DAILY 03/25/19 Review of Systems - Review of Systems Eyes: reports: No Symptoms. denies: Blind Spots, Blurred Vision, Double Vision , Eye Pain, Floaters, Photophobia, Recent Change in Vision, Other HENT: reports: No Symptoms. denies: Difficult Swallowing, Ear Discharge, Ear Pain, Epistaxis, Gingival Bleeding, Hearing Loss, Mouth Swelling, Nasal Congestion, Ocular Prosthesis, Throat Pain, Toothache, Ringing in Ears, Other Neck: reports: No Symptoms. denies: Decreased ROM, Lumps, Pain on Movement, Stiffness, Swollen Glands, Tenderness, Other Cardiovascular: reports: No Symptoms. denies: Chest Pain, Edema, Palpitations, Shortness of Breath, Other Respiratory: reports: No Symptoms. denies: Cough, Exercise Intolerance, Hemoptysis, Orthopnea, PND, Snoring, SOB, SOB on Exertion, Wheezing, Other Gastrointestinal: reports: No Symptoms. denies: Abdominal Pain, Bloating, Constipation, Diarrhea, Dysphagia, Indigestion, Melena, Nausea, Rectal Bleeding , Vomiting, Vomiting Blood, Other Genitourinary: reports: No Symptoms. denies: Burning, Discharge, Dysuria, Flank Pain, Frequency, Hematuria, Incontinence, Lesions, Menses, Pain, Testicular Mass, Testicular Pain, Testicular Swelling, Urgency, Vaginal Bleeding , Other Breasts: reports: No Symptoms Reported. denies: See HPI, Breast Implants, Discharge from Nipple, Lumps, Pain, Skin Changes, Other Musculoskeletal: reports: Joint Pain, Joint Swelling Integumentary: reports: Erythema (RT knee operative site) Neurological: reports: No Symptoms. denies: Change in LOC, Change in Speech, Confusion, Dizziness, Headache, Incoordination, Numbness, Parasthesia, Pre- Existing Deficit, Seizure, Syncope, Tremors, Unsteady Gait, Weakness, Other Endocrine: reports: No Symptoms. denies: Excessive Sweating, Flushing, Increased Hunger, Increased Thirst, Intolerance to Cold, Intolerance to Heat, Unexplained Weight Gain, Unexplained Weight Loss, Other Hematology/Lymphatic: reports: No Symptoms. denies: Easily Bruised, Excessive Bleeding, Swollen Glands, Other Psychiatric: reports: No Symptoms. denies: Altered Sleep Pattern, Anxiety, Depression, Hallucinations, Panic, Paranoia, Suicidal, Other Physical Exam Vital Signs: Vital Signs Temperature 98.1 F 03/26/19 10:00 Pulse Rate 65 03/26/19 10:00 Respiratory Rate 18 03/26/19 10:00 Blood Pressure 123/65 03/26/19 10:00 O2 Sat by Pulse Oximetry (%) 97 03/26/19 10:00 Constitutional: Yes: No Distress, Calm Eyes: Yes: Conjunctiva Clear, EOM Intact HENT: Yes: Atraumatic, Normocephalic Neck: Yes: Supple, Trachea Midline Cardiovascular: Yes: Regular Rate and Rhythm Respiratory: Yes: Regular, CTA Bilaterally Gastrointestinal: Yes: Normal Bowel Sounds, Soft Renal/: Yes: WNL Musculoskeletal: Yes: Joint Swelling (Rt knee) Extremities: Yes: Erythema (Rt kneee) Wound/Incision: Yes: Other (Rt knee swelling/erythema/mild tenderness, incision site clean (very minimal sanguinous drainage, no purulence)) Neurological: Yes: Alert, Oriented Labs: CBC, BMP 03/26/19 08:27 03/26/19 08:27 Laboratory Tests 03/25/19 03/25/19 03/25/19 16:50 16:50 16:50 WBC 9.0 RBC 4.26 Hgb 12.4 Hct 36.9 MCV 86.7 MCH 29.1 MCHC 33.6 RDW 11.8 Plt Count 390 MPV 8.4 Absolute Neuts (auto) 5.2 Neutrophils % 57.5 Lymphocytes % 29.1 Monocytes % 4.8 Eosinophils % 7.9 H Basophils % 0.7 ESR PT with INR 13.4 H INR 1.20 PTT (Actin FS) 31.8 VBG pH POC VBG pCO2 POC VBG pO2 VBG HCO3 VBG O2 Sat (Slade) VBG Base Excess Sodium 135 L Potassium 4.2 Chloride 102 Carbon Dioxide 29 Anion Gap 4 L BUN 15.0 Creatinine 0.7 Est GFR (CKD-EPI)AfAm 115.45 Est GFR (CKD-EPI)NonAf 99.62 POC Glucometer Random Glucose 127 H Lactic Acid Calcium 9.3 Total Bilirubin 0.9 AST 79 H ALT 41 Alkaline Phosphatase 138 H C-Reactive Protein Total Protein 7.4 Albumin 3.6 Urine Color Urine Appearance Urine pH Urine Protein Urine Glucose (UA) Urine Ketones Urine Blood Urine Nitrite Urine Bilirubin Urine Urobilinogen Ur Leukocyte Esterase Urine RBC Urine WBC Ur Transition Epith Cell Urine Bacteria 03/25/19 03/25/19 03/25/19 16:50 16:50 17:26 WBC RBC Hgb Hct MCV MCH MCHC RDW Plt Count MPV Absolute Neuts (auto) Neutrophils % Lymphocytes % Monocytes % Eosinophils % Basophils % ESR PT with INR INR PTT (Actin FS) VBG pH 7.37 POC VBG pCO2 50.2 POC VBG pO2 < 49 H VBG HCO3 28.6 VBG O2 Sat (Slade) 63.1 L VBG Base Excess 3.1 H Sodium Potassium Chloride Carbon Dioxide Anion Gap BUN Creatinine Est GFR (CKD-EPI)AfAm Est GFR (CKD-EPI)NonAf POC Glucometer Random Glucose Lactic Acid 1.5 Calcium Total Bilirubin AST ALT Alkaline Phosphatase C-Reactive Protein Total Protein Albumin Urine Color Yellow Urine Appearance Clear Urine pH 5.0 Urine Protein Negative Urine Glucose (UA) Negative Urine Ketones Negative Urine Blood Trace-intact Urine Nitrite Negative Urine Bilirubin Negative Urine Urobilinogen 0.2 Ur Leukocyte Esterase Negative Urine RBC 2-5 Urine WBC 0-2 Ur Transition Epith Cell Rare Urine Bacteria Rare 03/26/19 03/26/19 03/26/19 06:18 08:27 08:27 WBC 7.6 RBC 3.54 L Hgb 10.2 L Hct 31.3 L D MCV 88.4 MCH 28.8 MCHC 32.5 RDW 12.0 Plt Count 333 MPV 8.1 Absolute Neuts (auto) 4.5 Neutrophils % 58.1 Lymphocytes % 28.3 Monocytes % 4.4 Eosinophils % 8.5 H Basophils % 0.7 ESR PT with INR INR PTT (Actin FS) VBG pH POC VBG pCO2 POC VBG pO2 VBG HCO3 VBG O2 Sat (Slade) VBG Base Excess Sodium 138 Potassium 4.1 Chloride 104 Carbon Dioxide 25 Anion Gap 9 BUN 12.0 Creatinine 0.7 Est GFR (CKD-EPI)AfAm 115.45 Est GFR (CKD-EPI)NonAf 99.62 POC Glucometer 132 Random Glucose 121 H Lactic Acid Calcium 8.6 Total Bilirubin AST ALT Alkaline Phosphatase C-Reactive Protein Total Protein Albumin Urine Color Urine Appearance Urine pH Urine Protein Urine Glucose (UA) Urine Ketones Urine Blood Urine Nitrite Urine Bilirubin Urine Urobilinogen Ur Leukocyte Esterase Urine RBC Urine WBC Ur Transition Epith Cell Urine Bacteria 03/26/19 03/26/19 03/26/19 08:27 08:27 11:44 WBC RBC Hgb Hct MCV MCH MCHC RDW Plt Count MPV Absolute Neuts (auto) Neutrophils % Lymphocytes % Monocytes % Eosinophils % Basophils % ESR 102 H PT with INR INR PTT (Actin FS) VBG pH POC VBG pCO2 POC VBG pO2 VBG HCO3 VBG O2 Sat (Slade) VBG Base Excess Sodium Potassium Chloride Carbon Dioxide Anion Gap BUN Creatinine Est GFR (CKD-EPI)AfAm Est GFR (CKD-EPI)NonAf POC Glucometer 147 Random Glucose Lactic Acid Calcium Total Bilirubin AST ALT Alkaline Phosphatase C-Reactive Protein 6.2 H Total Protein Albumin Urine Color Urine Appearance Urine pH Urine Protein Urine Glucose (UA) Urine Ketones Urine Blood Urine Nitrite Urine Bilirubin Urine Urobilinogen Ur Leukocyte Esterase Urine RBC Urine WBC Ur Transition Epith Cell Urine Bacteria Blood / Urine cultures - results pending Imaging - Results Chest X-ray: Report Reviewed (clear) Problem List - Problems (1) DM2 (diabetes mellitus, type 2) Code(s): E11.9 - TYPE 2 DIABETES MELLITUS WITHOUT COMPLICATIONS (2) HTN (hypertension) Code(s): I10 - ESSENTIAL (PRIMARY) HYPERTENSION (3) Post op infection Code(s): T81.40XA - INFECTION FOLLOWING A PROCEDURE, UNSPECIFIED, INIT Assessment/Plan 53 y.o. female with PMH of DM (diagnosed 1 month ago), HTN, bowel obstruction s/ p partial colectomy (2002), and OA s/p RT Partial knee replacement (POD#5) who presents with c/o of fever/chills (102.2F at home) with severe Rt knee pain/ swelling/erythema that began one day ago. Post-operative R knee wound infection r/o septic Joint s/p Rt Partial knee replacement POD#5 OA DM HTN -- Lab/imaging results reviewed -- Will switch to Cefepime and Vancomycin empirically for now, monitor renal function, Vancomycin trough prior to 4th dose -- Suggest joint aspiration for analysis/cultures -- Rt knee Xray -- Orthopedics to follow up -- esr/crp elevated -- follow up blood culture results -- continue wound care -- maintain tight glycemic control Pt currently afebrile, pain controlled Continue monitor closely Will follow Thank you
--- NOTE | 2019-03-26 13:36 | EKG ---
Test Reason : Blood Pressure : / mmHG Vent. Rate : 058 BPM Atrial Rate : 058 BPM P-R Int : 176 ms QRS Dur : 150 ms QT Int : 464 ms P-R-T Axes : 044 -43 158 degrees QTc Int : 455 ms SINUS BRADYCARDIA LEFT AXIS DEVIATION LEFT BUNDLE BRANCH BLOCK ABNORMAL ECG WHEN COMPARED WITH ECG OF 10-DEC-2015 07:43, LEFT BUNDLE BRANCH BLOCK IS NOW PRESENT Confirmed by MD Monica, Omar ([id number]) on 03/26/2019 1:35:47 PM Referred By: ALLEN MICHELE Confirmed By:Omar Anderson MD
[2019-03-26] MEDS ORDERED: VANCOMYCIN 1 GRAM (PRE-DOCKED) 1,000 MG/250 ML BAG IVPB ONE (14:27)
[2019-03-26] MEDS: VANCOMYCIN 1 GRAM (PRE-DOCKED) 1,000 MG/250 ML BAG IVPB SCH (14:31)
[2019-03-26] MEDS ORDERED: CEFEPIME HCL 2 GM VIAL (RESTRICTED TO ID) ONE (17:05)
[2019-03-26] MEDS ORDERED: DEXTROSE 5%-WATER 100 ML IVPB ONE (17:05)
[2019-03-26] MEDS: CEFEPIME 2 GM in DEXTROSE 5%-WATER 100 ML IVPB SCH (17:35)
[2019-03-26] MEDS: ATORVASTATIN CA 40 MG TABLET (FP) PO SCH (21:17)
[2019-03-26] MEDS: INSULIN SLIDING SCALE (NOVOLOG) 1 VIAL SQ SCH (22:20)
[2019-03-27] MEDS ORDERED: CEFEPIME HCL 2 GM VIAL (RESTRICTED TO ID) ONE ×3 (03:03→15:29)
[2019-03-27] MEDS ORDERED: DEXTROSE 5%-WATER 100 ML IVPB ONE ×3 (03:04→15:29)
[2019-03-27] MEDS: VANCOMYCIN 1 GRAM (PRE-DOCKED) 1,000 MG/250 ML BAG IVPB SCH ×2 (03:11→15:00)
[2019-03-27] MEDS: CEFEPIME 2 GM in DEXTROSE 5%-WATER 100 ML IVPB SCH ×3 (03:11→17:58)
[2019-03-27] MEDS: INSULIN SLIDING SCALE (NOVOLOG) 1 VIAL SQ SCH ×3 (06:19→18:05)
[2019-03-27] MEDS: ASPIRIN 325 MG TABLET PO SCH (08:05)
[2019-03-27 08:17] LABS: BASO % 0.7 % (0-2.0); EOS % 9.4 % (0-4.5); HEMATOCRIT 31.6 % (32.4-45.2); HEMOGLOBIN 10.3 GM/dl (10.7-15.3); LYMPH % 28.1 % (8-40); MCH 28.5 pg (25.7-33.7); MCHC 32.6 g/dl (32.0-36.0); MEAN CELL VOLUME 87.5 fl (80-96); MEAN PLT VOLUME 7.8 fl (7.5-11.1); MONO % 5.8 % (3.8-10.2); PLATELET COUNT 367 K/MM3 (134-434); RBC 3.61 M/mm3 (3.60-5.2); RDW 11.6 % (11.6-15.6); WHITE BLOOD COUNT 7.1 K/mm3 (4.0-10.8)
--- NOTE | 2019-03-27 08:19 | CON.ORTH ---
Consult Reason for Consultation:: right knee pain s/p bicom - Past Medical History Cardio/Vascular: Yes: HTN Gastrointestinal: Yes: Other (bowel obstruction) ...LMP Comment: 53 YEARS OLD Endocrine: Yes: Diabetes Mellitus - Past Surgical History Past Surgical History: Yes: Appendectomy, Arthrosocopy, Cholecystectomy, Colectomy, Hysterectomy - Alcohol/Substance Use Hx Alcohol Use: Yes (OCCASIONAL) History of Substance Use: reports: None - Smoking History Smoking history: Never smoked Have you smoked in the past 12 months: No Aproximately how many cigarettes per day: 0 If you are a former smoker, when did you quit?: 2001 Home Medications - Allergies Allergies/Adverse Reactions: Allergies Allergy/AdvReac Type Severity Reaction Status Date / Time Tetanus Vaccines and Toxoid Allergy Severe Verified 03/25/19 13:57 [Tetanus] - Home Medications Home Medications: Ambulatory Orders Atorvastatin Ca [Lipitor] 40 mg PO DAILY 03/14/19 Metformin HCl [Glucophage] 1,000 mg PO DAILY 03/14/19 Aspirin [ASA -] 325 mg PO DAILY@0800 tablet 03/21/19 Oxycodone HCl/Acetaminophen [Percocet 5-325 mg Tablet -] 1 - 2 tab PO Q6H #50 tab MDD 8 03/21/19 Carvedilol 3.125 mg PO BID 03/25/19 Losartan Potassium 25 mg PO DAILY 03/25/19 Physical Exam for Ortho Vital Signs: Vital Signs Temperature 97.8 F 03/27/19 06:38 Pulse Rate 56 L 03/27/19 06:38 Respiratory Rate 19 03/27/19 07:52 Blood Pressure 120/62 03/27/19 06:38 O2 Sat by Pulse Oximetry (%) 98 03/27/19 07:52 Labs: CBC, BMP 03/26/19 08:27 INR, PTT INR 1.20 (0.82-1.09) 03/25/19 16:50 - Lower Extremity Knee: Yes: Right, Pain, Other (incision c/d/i, no drainage, minimal erythema, mild swelling, rom 0-70, calf soft, nt, nvi) Assessment/Plan The patient is a 53 year old female with significant past medical history of DM and HTN, POD #4 from R knee arthroplasty, who presented to the ED with a fever and redness/swelling to her R knee. Pt admitted for IV abx. She has significant improvement since Wednesday. She has been afebrile with normal WBC count while in hospital. a/p right knee cellulitis s/p bicom knee replacement IV ab as per ID- switch to PO abx if ok with ID PT dvt ppx pain control ok to d/c home today if ID oks switch to PO abx d/w Dr. Painter
[2019-03-27] MEDS: LOSARTAN POTASSIUM 25 MG TABLET PO SCH (09:35)
[2019-03-27] MEDS: CARVEDILOL 3.125 MG TABLET (FP) PO SCH ×2 (09:35→21:09)
[2019-03-27] MEDS: HEPARIN NA (PORCINE) 5,000 UNITS/ML 1ML VIAL SQ SCH (09:36)
--- NOTE | 2019-03-27 13:49 | PN ---
Physical Exam: SUBJECTIVE: Patient seen and examined at bedside. Knee feels better, swelling is down, pain is improved. No fever, sweats, chills. OBJECTIVE: Vital Signs Period Temp Pulse Resp BP Sys/Rodríguez Pulse Ox Last 24 Hr 97.7 F-97.8 F 56-59 16-19 108-120/56-66 97-99 GENERAL: The patient is awake, alert, and fully oriented, in no acute distress. LUNGS: CTA HEART: Regular rate and rhythm, S1, S2 ABDOMEN: Soft, nontender, nondistended RIGHT LE: Surgical dressing taken down, incision is clean and dry, no bleeding, no drainage, edges well-approximated; minimal swelling and erythema NEUROLOGICAL: Cranial nerves II through XII grossly intact. Normal speech, gait not observed. Laboratory Results - last 24 hr 03/26/19 03/27/19 03/27/19 21:39 06:11 06:25 WBC 7.1 RBC 3.61 Hgb 10.3 L Hct 31.6 L MCV 87.5 MCH 28.5 MCHC 32.6 RDW 11.6 Plt Count 367 MPV 7.8 Absolute Neuts (auto) 4.0 Neutrophils % 56.0 Lymphocytes % 28.1 Monocytes % 5.8 Eosinophils % 9.4 H Basophils % 0.7 POC Glucometer 120 151 Active Medications Generic Name Dose Route Start Last Admin Trade Name Abhayq PRN Reason Stop Dose Admin Aspirin 325 mg 03/26/19 08:00 03/27/19 08:05 Asa - PO 325 mg DAILY@0800 RAZ Administration Atorvastatin Calcium 40 mg 03/25/19 22:00 03/26/19 21:17 Lipitor - PO 40 mg HS RAZ Administration Carvedilol 3.125 mg 03/25/19 22:00 03/27/19 09:35 Coreg - PO 3.125 mg BID RAZ Administration Heparin Sodium (Porcine) 5,000 unit 03/25/19 22:00 03/27/19 09:36 Heparin - SQ 5,000 unit BID RAZ Administration Cefepime HCl 2 gm/ Dextrose 100 mls @ 100 mls/hr 03/26/19 18:00 03/27/19 09: 36 IVPB 100 mls/hr Q8H-IV RAZ Administration Protocol Vancomycin HCl 1,000 mg in 250 mls @ 166.667 mls/hr 03/26/19 15:00 03/27/19 03:11 Vancomycin (Pre-Docked) IVPB 166.667 mls/hr 0300,1500 RAZ Administration Protocol Insulin Aspart 1 vial 03/26/19 11:00 03/27/19 06:19 Novolog Vial Sliding Scale - SQ Not Given ACHS RAZ Protocol Losartan Potassium 25 mg 03/26/19 10:00 03/27/19 09:35 Cozaar - PO 25 mg DAILY RAZ Administration Oxycodone/Acetaminophen 1 combo 03/25/19 19:03 03/27/19 04:00 Percocet 5/325 - PO 1 combo Q6H PRN Administration PAIN LEVEL 4 - 6 ASSESSMENT/PLAN: 53 year-old female with a PMH significant for HTN, Type II NIDDM, admitted for post-surgical infection of right knee. Right partial knee replacement on 03/21/[address] Martinez --POD #6 --infection right knee --afebrile, no leukocytosis --continue cefepime, Vanc --continue daily ASA 325mg --ID following Hypertension --BP stable --continue Losartan, carvedilol Type II NIDDM --Novolog sliding scale coverage FEN Fluids: PO intake adequate Electrolytes: replegte as indicated Nutrition: low sodium, diabetic DVT prophylaxis: daily ASA 325mg Physical therapy Dispo: continues to require inpatient care. Plan is to discharge on Wednesday on PO antibiotics if stable. Full code. Visit type - Emergency Visit Emergency Visit: Yes ED Registration Date: 03/25/19 Care time: The patient presented to the Emergency Department on the above date and was hospitalized for further evaluation of their emergent condition. - New Patient This patient is new to me today: Yes Date on this admission: 03/27/19 - Critical Care Critical Care patient: No
--- NOTE | 2019-03-27 16:03 | PN ---
Progress Note, Physician History of Present Illness: patient stable swelling of the knee improving pain better no fevers now - Current Medication List Current Medications: Active Medications Aspirin (Asa -) 325 mg PO DAILY@0800 [facility] Last Admin: 03/27/19 08:05 Dose: 325 mg Atorvastatin Calcium (Lipitor -) 40 mg PO HS [facility] Last Admin: 03/26/19 21:17 Dose: 40 mg Carvedilol (Coreg -) 3.125 mg PO BID [facility] Last Admin: 03/27/19 09:35 Dose: 3.125 mg Heparin Sodium (Porcine) (Heparin -) 5,000 unit SQ BID [facility] Last Admin: 03/27/19 09:36 Dose: 5,000 unit Cefepime HCl 2 gm/ Dextrose 100 mls @ 100 mls/hr IVPB Q8H-IV [facility]; Protocol Last Admin: 03/27/19 09:36 Dose: 100 mls/hr Vancomycin HCl (Vancomycin (Pre-Docked)) 1,000 mg in 250 mls @ 166.667 mls/hr IVPB 0300,1500 [facility]; Protocol Last Admin: 03/27/19 03:11 Dose: 166.667 mls/hr Insulin Aspart (Novolog Vial Sliding Scale -) 1 vial SQ ACHS [facility]; Protocol Last Admin: 03/27/19 11:00 Dose: Not Given Losartan Potassium (Cozaar -) 25 mg PO DAILY [facility] Last Admin: 03/27/19 09:35 Dose: 25 mg Oxycodone/Acetaminophen (Percocet 5/325 -) 1 combo PO Q6H PRN PRN Reason: PAIN LEVEL 4 - 6 Last Admin: 03/27/19 04:00 Dose: 1 combo - Objective Vital Signs: Vital Signs Temperature 98.4 F 03/27/19 14:44 Pulse Rate 68 03/27/19 14:44 Respiratory Rate 17 03/27/19 14:44 Blood Pressure 124/70 03/27/19 14:44 O2 Sat by Pulse Oximetry (%) 99 03/27/19 14:44 Constitutional: Yes: No Distress, Calm Cardiovascular: Yes: S1, S2 Respiratory: Yes: Regular, CTA Bilaterally Gastrointestinal: Yes: Normal Bowel Sounds, Soft Musculoskeletal: Yes: WNL Extremities: Yes: Erythema (of the knee joint improving), Other Integumentary: Yes: Erythema (improving) Wound/Incision: Yes: Clean/Dry Neurological: Yes: Alert, Oriented Psychiatric: Yes: Alert, Oriented Labs: CBC, BMP 03/27/19 06:25 03/26/19 08:27 INR, PTT INR 1.20 (0.82-1.09) 03/25/19 16:50 Assessment/Plan Problem List - Problems (1) DM2 (diabetes mellitus, type 2) Code(s): E11.9 - TYPE 2 DIABETES MELLITUS WITHOUT COMPLICATIONS (2) HTN (hypertension) Code(s): I10 - ESSENTIAL (PRIMARY) HYPERTENSION (3) Post op infection Code(s): T81.40XA - INFECTION FOLLOWING A PROCEDURE, UNSPECIFIED, INIT Assessment/Plan 53 y.o. female with PMH of DM (diagnosed 1 month ago), HTN, bowel obstruction s/ p partial colectomy (2001), and OA s/p RT Partial knee replacement (POD#5) who presents with c/o of fever/chills (102.2F at home) with severe Rt knee pain/ swelling/erythema that began one day ago. Post-operative R knee cellulitis s/p Rt Partial knee replacement POD#5 OA DM HTN plan will continue iv abx if patient continues to improve will switch to oral abx on wednesday monitor for fevers rest as per the team
[2019-03-27] MEDS: ATORVASTATIN CA 40 MG TABLET (FP) PO SCH (21:09)
[2019-03-28] MEDS: CEFEPIME 2 GM in DEXTROSE 5%-WATER 100 ML IVPB SCH ×3 (02:40→17:52)
[2019-03-28] MEDS ORDERED: CEFEPIME HCL 2 GM VIAL (RESTRICTED TO ID) ONE ×3 (03:01→17:31)
[2019-03-28] MEDS ORDERED: DEXTROSE 5%-WATER 100 ML IVPB ONE ×3 (03:02→17:31)
[2019-03-28] MEDS: VANCOMYCIN 1 GRAM (PRE-DOCKED) 1,000 MG/250 ML BAG IVPB SCH ×2 (03:46→15:12)
--- NOTE | 2019-03-28 06:34 | PN ---
Physical Exam: SUBJECTIVE: Patient seen and examined. Voices no complaints. OBJECTIVE: Vital Signs Period Temp Pulse Resp BP Sys/Rodríguez Pulse Ox Last 24 Hr 97.8 F-98.4 F 56-75 17-19 120-124/62-70 98-99 GENERAL: The patient is awake, alert, and fully oriented, in no acute distress. LUNGS: CTA HEART: Regular rate and rhythm, S1, S2 ABDOMEN: Soft, nontender, nondistended RIGHT LE: Surgical dressing c/d/i NEUROLOGICAL: Cranial nerves II through XII grossly intact. Normal speech, gait not observed. Laboratory Results - last 24 hr 03/27/19 03/27/19 03/28/19 06:25 13:25 06:11 WBC 7.1 RBC 3.61 Hgb 10.3 L Hct 31.6 L MCV 87.5 MCH 28.5 MCHC 32.6 RDW 11.6 Plt Count 367 MPV 7.8 Absolute Neuts (auto) 4.0 Neutrophils % 56.0 Lymphocytes % 28.1 Monocytes % 5.8 Eosinophils % 9.4 H Basophils % 0.7 POC Glucometer 155 Vancomycin Pre-Dose 7.1 L Active Medications Generic Name Dose Route Start Last Admin Trade Name Freq PRN Reason Stop Dose Admin Aspirin 325 mg 03/26/19 08:00 03/27/19 08:05 Asa - PO 325 mg DAILY@0800 RAZ Administration Atorvastatin Calcium 40 mg 03/25/19 22:00 03/27/19 21:09 Lipitor - PO 40 mg HS RAZ Administration Carvedilol 3.125 mg 03/25/19 22:00 03/27/19 21:09 Coreg - PO 3.125 mg BID RAZ Administration Cefepime HCl 2 gm/ Dextrose 100 mls @ 100 mls/hr 03/26/19 18:00 03/28/19 02: 40 IVPB 100 mls/hr Q8H-IV RAZ Administration Protocol Vancomycin HCl 1,000 mg in 250 mls @ 166.667 mls/hr 03/26/19 15:00 03/28/19 03:46 Vancomycin (Pre-Docked) IVPB 166.667 mls/hr 0300,1500 RAZ Administration Protocol Insulin Aspart 1 vial 03/26/19 11:00 03/27/19 18:05 Novolog Vial Sliding Scale - SQ Not Given ACHS RAZ Protocol Losartan Potassium 25 mg 03/26/19 10:00 03/27/19 09:35 Cozaar - PO 25 mg DAILY RAZ Administration Oxycodone/Acetaminophen 1 combo 03/25/19 19:03 03/28/19 06:03 Percocet 5/325 - PO 1 combo Q6H PRN Administration PAIN LEVEL 4 - 6 ASSESSMENT/PLAN: 53 year-old female with a PMH significant for HTN, Type II NIDDM, admitted for post-surgical infection of right knee. Right partial knee replacement on 03/21/[address] Martinez --POD #7 --infection right knee --afebrile, no leukocytosis --continue cefepime, Vanc --continue daily ASA 325mg --ID following Hypertension --BP stable --continue Losartan, carvedilol Type II NIDDM --Novolog sliding scale coverage FEN Fluids: PO intake adequate Electrolytes: replegte as indicated Nutrition: low sodium, diabetic DVT prophylaxis: daily ASA 325mg Physical therapy Dispo: continues to require inpatient care. Plan is to discharge tomorrow on PO antibiotics. Full code. Visit type - Emergency Visit Emergency Visit: Yes ED Registration Date: 03/25/19 Care time: The patient presented to the Emergency Department on the above date and was hospitalized for further evaluation of their emergent condition. - New Patient This patient is new to me today: No - Critical Care Critical Care patient: No
[2019-03-28] MEDS: ASPIRIN 325 MG TABLET PO SCH (08:00)
[2019-03-28] MEDS: LOSARTAN POTASSIUM 25 MG TABLET PO SCH (09:19)
[2019-03-28] MEDS: CARVEDILOL 3.125 MG TABLET (FP) PO SCH ×2 (09:19→21:18)
[2019-03-28] MEDS: INSULIN SLIDING SCALE (NOVOLOG) 1 VIAL SQ SCH ×4 (11:00→21:21)
--- NOTE | 2019-03-28 13:45 | PN ---
Progress Note (short form) - Note Progress Note: Ortho Pt seen and examined- feeling better, no fevers Selected Entries 03/27/19 22:00 Temperature 98.2 F Pulse Rate 75 Respiratory 18 Rate Blood Pressure 123/63 Laboratory Tests 03/27/19 06:25 WBC 7.1 Hgb 10.3 L Hct 31.6 L Plt Count 367 dressing c/d/i, calf soft, nt rom 0-80, nvi a/p abx as per ID PT wbat d/c home tomorrow ID to change abx to PO d/w Dr. Martinez
[2019-03-28] MEDS: ATORVASTATIN CA 40 MG TABLET (FP) PO SCH (21:18)
[2019-03-29] MEDS ORDERED: DEXTROSE 5%-WATER 100 ML IVPB ONE ×2 (00:16→08:55)
[2019-03-29] MEDS ORDERED: CEFEPIME HCL 2 GM VIAL (RESTRICTED TO ID) ONE ×2 (00:16→08:55)
[2019-03-29] MEDS: CEFEPIME 2 GM in DEXTROSE 5%-WATER 100 ML IVPB SCH ×2 (01:18→09:01)
[2019-03-29] MEDS: VANCOMYCIN 1 GRAM (PRE-DOCKED) 1,000 MG/250 ML BAG IVPB SCH (02:13)
[2019-03-29] MEDS: INSULIN SLIDING SCALE (NOVOLOG) 1 VIAL SQ SCH ×2 (06:02→14:36)
[2019-03-29 06:33] VITALS: BP 117/66; PULSE 59; TEMP 98.3
--- NOTE | 2019-03-29 08:07 | DS ---
Physical Exam: SUBJECTIVE: Patient seen and examined OBJECTIVE: Vital Signs Period Temp Pulse Resp BP Sys/Rodríguez Pulse Ox Last 24 Hr 98.0 F-98.6 F 52-98 16-20 117-124/66-69 96-98 PHYSICAL EXAM GENERAL: The patient is awake, alert, and fully oriented, in no acute distress. HEAD: Normal with no signs of trauma. EYES: PERRL, extraocular movements intact, sclera anicteric, conjunctiva clear. ENT: Ears normal, nares patent, oropharynx clear without exudates, moist mucous membranes. NECK: Trachea midline, full range of motion, supple. LUNGS: Breath sounds equal, clear to auscultation bilaterally, no wheezes, no crackles, no accessory muscle use. HEART: Regular rate and rhythm, S1, S2 without murmur, rub or gallop. ABDOMEN: Soft, nontender, nondistended, normoactive bowel sounds, no guarding, no rebound, no hepatosplenomegaly, no masses. EXTREMITIES: 2+ pulses, warm, well-perfused, no edema. NEUROLOGICAL: Cranial nerves II through XII grossly intact. Normal speech, gait not observed. PSYCH: Normal mood, normal affect. SKIN: Warm, dry, normal turgor, no rashes or lesions noted. LABS Laboratory Results - last 24 hr 03/28/19 21:21 POC Glucometer 157 HOSPITAL COURSE: Date of Admission:03/25/19 Date of Discharge: 03/29/19 Minutes to complete discharge: 35 Discharge Summary Problems reviewed: Yes Reason For Visit: POSTOPERATIVE INFECTION Current Active Problems DM2 (diabetes mellitus, type 2) (Acute) HTN (hypertension) (Acute) Post op infection (Acute) Condition: Stable - Instructions - Home Medications Comprehensive Discharge Medication List: Ambulatory Orders Atorvastatin Ca [Lipitor] 40 mg PO DAILY 03/14/19 Metformin HCl [Glucophage] 1,000 mg PO DAILY 03/14/19 Aspirin [ASA -] 325 mg PO DAILY@0800 tablet 03/21/19 Oxycodone HCl/Acetaminophen [Percocet 5-325 mg Tablet -] 1 - 2 tab PO Q6H #50 tab MDD 8 03/21/19 Carvedilol 3.125 mg PO BID 03/25/19 Losartan Potassium 25 mg PO DAILY 03/25/19 This patient is new to me today: No Emergency Visit: Yes ED Registration Date: 03/25/19 Care time: The patient presented to the Emergency Department on the above date and was hospitalized for further evaluation of their emergent condition. Critical Care patient: No - Discharge Referral Referred to [facility] Med [facility].: No
[2019-03-29] MEDS: LOSARTAN POTASSIUM 25 MG TABLET PO SCH (09:00)
[2019-03-29] MEDS: ASPIRIN 325 MG TABLET PO SCH (09:00)
[2019-03-29] MEDS: CARVEDILOL 3.125 MG TABLET (FP) PO SCH (09:00)
--- NOTE | 2019-03-29 09:17 | PN ---
Progress Note (short form) - Note Progress Note: Ortho Pt seen and examined- feeling better, no fevers Selected Entries 03/29/19 06:32 Temperature 98.3 F Pulse Rate 59 L Respiratory 18 Rate Blood Pressure 117/66 Laboratory Tests 03/27/19 06:25 WBC 7.1 Hgb 10.3 L Hct 31.6 L Plt Count 367 incision c/d/i, calf soft, nt rom 0-80, nvi a/p dressing removed, sutures clipped abx as per ID PT wbat d/c home today ID to change abx to PO f/u in the office next week d/w Dr. Martinez
--- NOTE | 2019-03-29 14:41 | PN ---
Progress Note, Physician History of Present Illness: stable doing well knee looks a lot better - Current Medication List Current Medications: Active Medications Aspirin (Asa -) 325 mg PO DAILY@0800 [facility] Last Admin: 03/29/19 09:00 Dose: 325 mg Atorvastatin Calcium (Lipitor -) 40 mg PO HS [facility] Last Admin: 03/28/19 21:18 Dose: 40 mg Carvedilol (Coreg -) 3.125 mg PO BID [facility] Last Admin: 03/29/19 09:00 Dose: 3.125 mg Cefepime HCl 2 gm/ Dextrose 100 mls @ 100 mls/hr IVPB Q8H-IV RAZ; Protocol Last Admin: 03/29/19 09:01 Dose: 100 mls/hr Vancomycin HCl (Vancomycin (Pre-Docked)) 1,000 mg in 250 mls @ 166.667 mls/hr IVPB 0300,1500 [facility]; Protocol Last Admin: 03/29/19 02:13 Dose: 166.667 mls/hr Insulin Aspart (Novolog Vial Sliding Scale -) 1 vial SQ ACHS [facility]; Protocol Last Admin: 03/29/19 14:36 Dose: Not Given Losartan Potassium (Cozaar -) 25 mg PO DAILY [facility] Last Admin: 03/29/19 09:00 Dose: 25 mg Oxycodone/Acetaminophen (Percocet 5/325 -) 1 combo PO Q6H PRN PRN Reason: PAIN LEVEL 4 - 6 Last Admin: 03/29/19 14:35 Dose: 1 combo - Objective Vital Signs: Vital Signs Temperature 98.3 F 03/29/19 06:32 Pulse Rate 59 L 03/29/19 06:32 Respiratory Rate 16 03/29/19 07:41 Blood Pressure 117/66 03/29/19 06:32 O2 Sat by Pulse Oximetry (%) 97 03/29/19 07:41 Constitutional: Yes: No Distress, Calm Cardiovascular: Yes: S1, S2 Respiratory: Yes: Regular, CTA Bilaterally Gastrointestinal: Yes: Normal Bowel Sounds, Soft Musculoskeletal: Yes: WNL Extremities: Yes: WNL, Erythema (of the knee joint better), Other Wound/Incision: Yes: Clean/Dry Neurological: Yes: Alert, Oriented Psychiatric: Yes: Alert, Oriented Labs: CBC, BMP 03/27/19 06:25 03/26/19 08:27 INR, PTT INR 1.20 (0.82-1.09) 03/25/19 16:50 Assessment/Plan Problem List - Problems (1) DM2 (diabetes mellitus, type 2) Code(s): E11.9 - TYPE 2 DIABETES MELLITUS WITHOUT COMPLICATIONS (2) HTN (hypertension) Code(s): I10 - ESSENTIAL (PRIMARY) HYPERTENSION (3) Post op infection Code(s): T81.40XA - INFECTION FOLLOWING A PROCEDURE, UNSPECIFIED, INIT Assessment/Plan 53 y.o. female with PMH of DM (diagnosed 1 month ago), HTN, bowel obstruction s/ p partial colectomy (2001), and OA s/p RT Partial knee replacement (POD#5) who presents with c/o of fever/chills (102.2F at home) with severe Rt knee pain/ swelling/erythema that began one day ago. Post-operative R knee cellulitis s/p Rt Partial knee replacement POD#5 OA DM HTN plan change to oral abx as planned continue it for a week then follow up rest as per the team
== END 2019-03-29 14:37 | disposition home or self-care (01) | DRG 863 ==
LOC: FER 13:55 → FM/S 18:34
PROVIDERS: ADMIT Internal Medicine; ATTEND Nurse Practitioner Acute Care
DX: T81.40XA Infection following a procedure, unspecified, initial encounter (principal); M00.9 Pyogenic arthritis, unspecified; E87.1 Hypo-osmolality and hyponatremia; L03.115 Cellulitis of right lower limb; I10 Essential (primary) hypertension; E11.9 Type 2 diabetes mellitus without complications; R50.9 Fever, unspecified; E78.5 Hyperlipidemia, unspecified; D64.9 Anemia, unspecified
CPT/HCPCS: 36415; 71045-TC-FY; 80048; 80053; 81003; 81015; 82803; 82962; 83605; 85025; 85610; 85651; 85730; 86140; 87040; 87086; 93005; 97116-GP; 97162-GP; 99285-25; G0480; J1644; J7030

== ENCOUNTER 2019-04-23 16:03 | Inpatient (IN) | payer OTHER ==
--- NOTE | 2019-04-23 16:45 | PDOC ---
History of Present Illness - General Chief Complaint: Pain, Acute Stated Complaint: R KNEE PAIN Time Seen by Provider: 04/23/19 16:45 Past History - Past Medical History Allergies/Adverse Reactions: Allergies Allergy/AdvReac Type Severity Reaction Status Date / Time Tetanus Vaccines and Toxoid Allergy Severe Verified 04/23/19 16:16 [Tetanus] Home Medications: Ambulatory Orders Atorvastatin Ca [Lipitor] 40 mg PO DAILY 03/14/19 Metformin HCl [Glucophage] 1,000 mg PO DAILY 03/14/19 Aspirin [ASA -] 325 mg PO DAILY@0800 tablet 03/21/19 Oxycodone HCl/Acetaminophen [Percocet 5-325 mg Tablet] 1 - 2 tab PO Q6H #50 tab MDD 8 03/21/19 Carvedilol 3.125 mg PO BID 03/25/19 Losartan Potassium 25 mg PO DAILY 03/25/19 Amoxicillin/Potassium Clav [Augmentin 875-125 Tablet] 1 each PO BID #14 tablet 03/29/19 Clindamycin [Cleocin -] 300 mg PO QID #28 capsule 03/29/19 Anemia: No Asthma: No Cancer: No Cardiac Disorders: No CVA: No COPD: No CHF: No Dementia: No Diabetes: Yes GI Disorders: Yes (HX INTESTINAL OBSTR) Disorders: No HTN: Yes Hypercholesterolemia: Yes Liver Disease: No Seizures: No Thyroid Disease: No - Surgical History Abdominal Surgery: Yes (colectomy w/clips) Appendectomy: Yes Cardiac Surgery: No Cholecystectomy: Yes Lung Surgery: No Neurologic Surgery: No Orthopedic Surgery: Yes (RT KNEE MAKOPLASTY) - Immunization History Immunization Up to Date: Yes - Psycho Social/Smoking Cessation Hx Smoking Status: No Smoking History: Never smoked Have you smoked in the past 12 months: No Number of Cigarettes Smoked Daily: 0 If you are a former smoker, when did you quit?: 2001 Hx Alcohol Use: No Drug/Substance Use Hx: No Substance Use Type: None Hx Substance Use Treatment: No *Physical Exam - Vital Signs Last Vital Signs Temp Pulse Resp BP Pulse Ox 98.2 F 81 17 195/106 H 99 04/23/19 16:16 04/23/19 16:16 04/23/19 16:16 04/23/19 16:16 04/23/19 16:16 ED Treatment Course - LABORATORY CBC & Chemistry Diagram: 04/23/19 18:00 04/23/19 18:00 Medical Decision Making - Medical Decision Making 04/23/19 17:22 HPI: Denies fever, chills, fatigue, headache, dizziness, numbness/tingling, weakness , vision changes, shortness of breath, cough, chest pain, palpitations, leg swelling, abdominal pain, blood in stool, diarrhea, constipation, nausea, vomiting, dysuria, hematuria, confusion. ROS: Constitutional: Positive for chills, fever. Negative for fatigue, diaphoresis. HENT: Negative for sore throat, rhinorrhea, congestion. Eyes: Negative for visual disturbance. Respiratory: Negative for shortness of breath, cough, and wheezing. Cardiovascular: Negative for chest pain, palpitations, and leg swelling. Gastrointestinal: Negative for abdominal pain, blood in stool, constipation, diarrhea, nausea, and vomiting. Genitourinary: Negative for dysuria, flank pain, and hematuria. Musculoskeletal: Negative for myalgias, back pain, and neck pain. Skin: Negative for rash. Neurological: Negative for light-headedness, dizziness, vertigo, syncope, weakness, numbness and headaches. Psychiatric/Behavioral: Negative for behavioral problems and confusion. PE: Gen: Alert, NAD, comfortable-appearing. HEENT: PERRL, EOMI, MMM, NCAT. No conjunctival pallor. Sclera are non-icteric. CV: Regular rate and rhythm. No murmurs, rubs, or gallops. PULM: No resp distress. CTAB, no wheezes, rales, or rhonchi. ABD: soft, NT/ND, no rebound tenderness or guarding, no CVA tenderness. BACK: No TTP of c/t/l-spine. No step-offs or deformities. MSK: No bony deformities. 2+ pulses in all extremities. NEURO: AAOx3. PERRL. CN 2-12 intact. No pronator drift. No dysmetria. No dysdiadochokinesia. No abnormal nystagmus. RLE: No bony deformities. Well healed midline surgical scar without bleeding or drainage. No erythema or warmth. +suprapatellar effusion TTP. Limited ROM 2/2 pain, full active extension, active flexion to approx 70 degrees, no pain with passive ROM. No patellar crepitus or pain. Popliteal space without mass or tenderness. UEs/LLE: 5/5 strength. Sensation to light touch intact. EXTREMITIES: No cyanosis. No clubbing. No calf tenderness. PSYCH: Normal mood and thought pattern. SKIN: Warm and dry. Normal capillary refill. No rashes. No jaundice. MDM: 53yo F hx DM, HTN, and R knee arthroplasty (03/21/[address] Martinez, admission -03/29/19 for IV antibiotics for infection) sent by Dr Martinez for admission for possible knee infection vs component loosening, seen at [facility] earlier today for 3 days fever to 101F, N/V, and R knee pain/swelling/warmth. Hemodynamically stable, BP 143/80, neurologically intact except for diminished sensation RLE distal to knee (present since operation), decreased ROM R knee, + suprapatellar effusion R knee. Ddx: hardware infection, OM, septic joint, OA, gout, pseudogout, overuse, surgical component loosening. Consider other etiologies of fever and N/V including URI or PNA. -Pain management -EKG -CXR -CBC,CMP,Coags,T&S,Lact,Mg,Phos,ESR,CRP,BCx2 -Consider abx -Consult Dr Martinez (called) -Dispo: pending w/u and recs ortho 04/23/19 17:[address] Martinez - requested XR and admission to hospitalist, will follow. -XR R knee 04/23/19 19:41 XRs completed - no acute pathology seen by Dr Reid EKG reviewed: NSR, 60bpm, LAD, normal intervals, no e/o acute ischemia Labs reviewed. Of note CRP 1.5, ESR 17, WBC 4.3. 04/23/19 20:09 Admit to hospitalist - microblog sent. 04/23/19 20:40 Signed out to admitting team. 04/23/19 21:02 Discharge - Discharge Information Problems reviewed: Yes Clinical Impression/Diagnosis: Postoperative pain of right knee Condition: Stable - Admission Yes - Follow up/Referral - Patient Discharge Instructions - Post Discharge Activity
[2019-04-23] MEDS ORDERED: ACETAMINOPHEN 1000 MG/100 ML VIAL (NON FORMULARY) IVPB ONE (17:07)
[2019-04-23 18:10] LABS: BASO % 0.8 % (0-2.0); EOS % 4.3 % (0-4.5); HEMATOCRIT 39.8 % (32.4-45.2); LYMPH % 44.6 % (8-40); MCH 29.3 pg (25.7-33.7); MCHC 32.6 g/dl (32.0-36.0); MEAN CELL VOLUME 89.8 fl (80-96); MEAN PLT VOLUME 7.6 fl (7.5-11.1); MONO % 7.3 % (3.8-10.2); PLATELET COUNT 344 K/MM3 (134-434); RBC 4.43 M/mm3 (3.60-5.2); RDW 14.7 % (11.6-15.6); WHITE BLOOD COUNT 4.3 K/mm3 (4.0-10.0)
[2019-04-23] MEDS ORDERED: ACETAMINOPHEN INJECTION 100 ML IVPB ONE (18:20)
[2019-04-23 18:25] LABS: INR 1.01 (0.83-1.09); PROTHROMBIN TIME (PATIENT) 11.9 SEC (9.7-13.0)
[2019-04-23 18:38] LABS: BILIRUBIN,TOTAL 0.5 mg/dL (0.2-1); BLOOD UREA NITROGEN 14.6 mg/dL (7-18); CREATININE 0.8 mg/dL (0.55-1.3); MAGNESIUM 2.1 mg/dL (1.8-2.4); PHOSPHOROUS 3.7 mg/dL (2.5-4.9)
--- NOTE | 2019-04-23 18:38 | PDOC ---
Attending Attestation - Resident Resident Name: Leora Velasco - ED Attending Attestation I have performed the following: I have examined & evaluated the patient, The case was reviewed & discussed with the resident, I agree w/resident's findings & plan, Exceptions are as noted - HPI HPI: agree with resident hpi - Physicial Exam PE: 04/23/19 18:39 agere with resident exam - Medical Decision Making 04/23/19 18:37 53-year-old female with a history of a right knee replacement 03/[address] Martinez presents to the emergency department with R knee pain Plan to rule out septic joint. Case discussed with Dr. Martinez who requests labs, x-ray and admission. He would like us to hold off on tap/IV antibiotics for now until he evaluates her. Pt is non toxic and well appearing otherwise.
--- NOTE | 2019-04-23 18:43 | PDOC ---
*Physical Exam - Vital Signs Last Vital Signs Temp Pulse Resp BP Pulse Ox 98.2 F 81 17 195/106 H 99 04/23/19 16:16 04/23/19 16:16 04/23/19 16:16 04/23/19 16:16 04/23/19 16:16 ED Treatment Course - LABORATORY CBC & Chemistry Diagram: 04/23/19 18:00 04/23/19 18:00 - ADDITIONAL ORDERS Additional order review: Laboratory Results 04/23/19 04/23/19 04/23/19 18:00 18:00 18:00 PT with INR INR PTT (Actin FS) Sodium 139 Potassium 4.0 Chloride 105 Carbon Dioxide 29 Anion Gap 6 L BUN 14.6 Creatinine 0.8 Est GFR (CKD-EPI)AfAm 98.24 Est GFR (CKD-EPI)NonAf 84.76 Random Glucose 108 H Lactic Acid 1.6 Calcium 9.0 Phosphorus 3.7 Magnesium 2.1 Total Bilirubin 0.5 AST 37 ALT 29 Alkaline Phosphatase 118 H C-Reactive Protein 1.5 H Total Protein 8.0 Albumin 4.0 04/23/19 18:00 PT with INR 11.90 INR 1.01 PTT (Actin FS) 33.0 Sodium Potassium Chloride Carbon Dioxide Anion Gap BUN Creatinine Est GFR (CKD-EPI)AfAm Est GFR (CKD-EPI)NonAf Random Glucose Lactic Acid Calcium Phosphorus Magnesium Total Bilirubin AST ALT Alkaline Phosphatase C-Reactive Protein Total Protein Albumin 04/23/19 18:00 RBC 4.43 MCV 89.8 MCHC 32.6 RDW 14.7 D MPV 7.6 Neutrophils % 43.0 D Lymphocytes % 44.6 H D Monocytes % 7.3 Eosinophils % 4.3 D Basophils % 0.8 Medical Decision Making - Medical Decision Making 04/23/19 18:40 Pt signed out to me; she will be admitted for OR in the AM; NPO after midnight. She is having pain and difficulty with the hardware of her knee relacement. Her orthopedist is aware. SHe has a normal WBC and no fever and she is refusing IV abx at this time, as she wants to get cultures tomorrow in the OR. Pt was at [facility] last night, and she was treated with IV ABX there. She was forced to sign AMA and ocme here herself, as they were unable to do a direct transfer to this hospital to Dr. Martinez (ortho) Pt will be admitted to med surg. She is stable C-RP is 1.5 which is minimally elevated. 04/23/19 19:54 CHem and lactic acid are normal. XR done; CXR and knee hardware looks great. Pt will be admitted Discharge - Discharge Information Problems reviewed: Yes Clinical Impression/Diagnosis: Postoperative pain of right knee Condition: Stable - Follow up/Referral - Patient Discharge Instructions - Post Discharge Activity
[2019-04-23 18:53] LABS: ERYTHROCYTE SEDIMENTATION RATE 17 mm/hr (0-30)
--- NOTE | 2019-04-23 20:46 | PN ---
Teaching Attending Note Name of Resident: Aura Grimaldo ATTENDING PHYSICIAN STATEMENT I saw and evaluated the patient. I reviewed the resident's note and discussed the case with the resident. I agree with the resident's findings and plan as documented. SUBJECTIVE: Patient is a 53 year old woman with a PMH of NIDDM, HTN, Osteoarthritis, Appendectomy, Arthrosocopy, Cholecystectomy, Partial colectomy, Hysterectomy and Right knee arthroplasty (03/21/[address] Matrinez, admitted 03/25/19-03/29/19 for IV antibiotics for infection) sent by Dr Martinez for admission for possible knee infection vs component loosening. She is having pain and difficulty with the hardware of her knee replacement. Was at [facility] last night with complaint of 3 days of fever to 101F, nausea, vomiting and right knee pain, swelling and warmth. They gave her IV antibiotics, but she signed out AMA as they were unable to do a direct transfer to [facility]. In the ER she had a normal WBC and no fever and she refused IV antibiotics and wants to wait for cultures tomorrow in the OR. OBJECTIVE: Alert Vital Signs Period Temp Pulse Resp BP Sys/Rodríguez Pulse Ox Last 24 Hr 98.2 F 75-81 17-18 142-195/75-106 98-99 HEENT: No Jaundice, eye redness or discharge, PERRLA, EOMI. Normocephalic, atraumatic. External ears are normal and hearing is grossly intact. No nasal discharge. Neck: Supple, nontender. No palpable adenopathy or thyromegaly. No JVD Chest: Good effort. Clear to auscultation and percussion. Heart: Regular. No S3, rub or murmur Abdomen: Not distended, soft, nontender and no HSM. No rebound or guarding. Normal bowel sounds. Ext: Peripheral pulses intact. No leg edema. Swollen right knee, tender with reduced range of motion. Diminished sensation RLE distal to knee - which is chronic. Skin: Warm and dry. No petechiae, rash or ecchymosis. Neuro: Alert. Oriented x3. CN 2-12 grossly intact. Sensation grossly intact in all four extremities and DTR are symmetric. Psych: Appropriate mood and affect. Good insight. Home Medications Medication Instructions Recorded Atorvastatin Ca [Lipitor] 40 mg PO DAILY 03/14/19 Metformin HCl [Glucophage] 1,000 mg PO DAILY 03/14/19 Aspirin [ASA -] 325 mg PO DAILY@0800 tablet 03/21/19 Oxycodone HCl/Acetaminophen 1 - 2 tab PO Q6H #50 tab MDD 8 03/21/19 [Percocet 5-325 mg Tablet] Carvedilol 3.125 mg PO BID 03/25/19 Losartan Potassium 25 mg PO DAILY 03/25/19 Amoxicillin/Potassium Clav 1 each PO BID #14 tablet 03/29/19 [Augmentin 875-125 Tablet] Clindamycin [Cleocin -] 300 mg PO QID #28 capsule 03/29/19 Abnormal Lab Results 04/23/19 04/23/19 04/23/19 18:00 18:00 18:00 Lymphocytes % 44.6 H D Anion Gap 6 L Random Glucose 108 H Alkaline Phosphatase 118 H C-Reactive Protein 1.5 H ASSESSMENT AND PLAN: 1. Postop Right Knee Pain/Effusion - Blood cultures sent. Will be kept NPO after midnight for surgery tomorrow. Ortho consulted. EKG showed NSR, LAE, LAD and LBBB. No acute abnormality on CXR. No air collection or fracture noted on knee xray and hardware appears to be intact. Urinalysis pending. Will continue comprehensive care for all of patients comorbid conditions. 2. DM For now, we will hold the home diabetes drugs and implement sliding scale insulin regimen. Provide comprehensive diabetes care with patient teaching and counseling about the importance of adherence to prescribed diabetes regimen, euglycemia, eye care and foot care. 3. Overweight Counseled on the risks associated with being overweight. Will provide patient all the necessary assistance, counseling and positive reinforcement to facilitate weight loss. Consult cook house laborer. 4. Uncontrolled Hypertension - Restart suitable outpatient antihypertensive drugs when clinically appropriate. Revise regimen to ensure [id number] excellent BP control and curriculum counselor patient on the injurious effects of uncontrolled hypertension. Nonpharmacologic measures to control hypertension like weight loss, salt restriction and exercise discussed. Importance of adherence to treatment regimen and attainment of normotension emphasized. 5. DVT prophylaxis - SCD for now. Will start heparin after surgery tomorrow. 6. Advance directives - Full code
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
[2019-04-23] MEDS ORDERED: SODIUM CHLORIDE 1,000 ML IV SCH (22:00)
[2019-04-23 22:20] VITALS: BMI 31.8
[2019-04-24 00:24] LABS: PH,URINE 5.5 (5.0-8.0); URINE APPEARANCE CLEAR; URINE BILIRUBIN NEGATIVE (NEGATIVE); URINE COLOR YELLOW; URINE GLUCOSE (UA) NEGATIVE (NEGATIVE); URINE KETONE NEGATIVE (NEGATIVE); URINE LEUK ESTERASE NEGATIVE (NEGATIVE); URINE NITRITE NEGATIVE (NEGATIVE); URINE PROTEIN NEGATIVE (NEGATIVE); URINE UROBILINOGEN 0.2 mg/dL (0.2-1.0)
[2019-04-24] MEDS ORDERED: INSULIN SLIDING SCALE (NOVOLOG) 1 VIAL SQ SCH ×2 (07:00)
[2019-04-24 07:57] LABS: BASO % 0.6 % (0-2.0); HEMATOCRIT 35.6 % (32.4-45.2); HEMOGLOBIN 11.7 GM/dL (10.7-15.3); LYMPH % 48.5 % (8-40); MCH 29.4 pg (25.7-33.7); MEAN CELL VOLUME 89.2 fl (80-96); MEAN PLT VOLUME 7.3 fl (7.5-11.1); NEUT % 37.9 % (42.8-82.8); PLATELET COUNT 289 K/MM3 (134-434); RBC 3.99 M/mm3 (3.60-5.2); RDW 14.9 % (11.6-15.6); WHITE BLOOD COUNT 4.7 K/mm3 (4.0-10.0)
[2019-04-24 08:48] LABS: ALBUMIN 3.5 g/dl (3.4-5.0); BILIRUBIN,TOTAL 0.4 mg/dL (0.2-1); BLOOD UREA NITROGEN 12.2 mg/dL (7-18); CALCIUM 9.6 mg/dL (8.5-10.1); CREATININE 0.7 mg/dL (0.55-1.3); POTASSIUM 4.3 mmol/L (3.5-5.1); TOT PROT 6.8 g/dl (6.4-8.2)
--- NOTE | 2019-04-24 09:18 | CONSULT ---
Consult - text type - Consultation Consultation Note: FULL CONSULT DICTATED IMP; NO EVIDENCE OF INFECTION PLAN: DC TO HOME IF OK MEDICALLY
[2019-04-24] MEDS ORDERED: CARVEDILOL 3.125 MG TABLET (FP) PO SCH (10:00)
[2019-04-24] MEDS ORDERED: ATORVASTATIN CA 40 MG TABLET (FP) PO SCH (10:00)
[2019-04-24] MEDS ORDERED: LOSARTAN POTASSIUM 25 MG TABLET PO SCH (10:00)
--- NOTE | 2019-04-24 11:07 | PN ---
Teaching Attending Note Name of Resident: Nader Chavez ATTENDING PHYSICIAN STATEMENT I saw and evaluated the patient. I reviewed the resident's note and discussed the case with the resident. I agree with the resident's findings and plan as documented. SUBJECTIVE: Patient is comfortable, feeling is better with no acute distress. wants to go home. OBJECTIVE: Vital Signs Temperature 98.0 F 04/24/19 06:00 Pulse Rate 65 04/24/19 06:00 Respiratory Rate 20 04/24/19 06:00 Blood Pressure 151/88 04/24/19 06:00 O2 Sat by Pulse Oximetry (%) 98 04/23/19 22:29 GENERAL: The patient is awake, alert, and fully oriented, in no acute distress. HEAD: Normal with no signs of trauma. EYES: PERRL, extraocular movements intact, sclera anicteric, conjunctiva clear. ENT: Ears normal, oropharynx clear without exudates, moist mucous membranes. NECK: Trachea midline, full range of motion, supple. LUNGS: Breath sounds equal, clear to auscultation bilaterally, no wheezes, no crackles, no accessory muscle use. HEART: Regular rate and rhythm, S1, S2 without murmur, rub or gallop. ABDOMEN: Soft, Nt,ND, normoactive bowel sounds, no guarding, no rebound, no hepatosplenomegaly, no masses. EXTREMITIES: 2+ pulses, warm, well-perfused,right knee midly swollen NEUROLOGICAL: Cranial nerves II through XII grossly intact. Normal speech, gait not observed. PSYCH: Normal mood, normal affect. SKIN: Warm, dry, normal turgor, no rashes or lesions noted WBC 4.7 K/mm3 (4.0-10.0) 04/24/19 07:18 RBC 3.99 M/mm3 (3.60-5.2) 04/24/19 07:18 Hgb 11.7 GM/dL (10.7-15.3) 04/24/19 07:18 Hct 35.6 % (32.4-45.2) 04/24/19 07:18 MCV 89.2 fl (80-96) 04/24/19 07:18 MCHC 33.0 g/dl (32.0-36.0) 04/24/19 07:18 RDW 14.9 % (11.6-15.6) 04/24/19 07:18 Plt Count 289 K/MM3 (134-434) 04/24/19 07:18 MPV 7.3 fl (7.5-11.1) L 04/24/19 07:18 CMP Sodium 142 mmol/L (136-145) 04/24/19 07:18 Potassium 4.3 mmol/L (3.5-5.1) 04/24/19 07:18 Chloride 107 mmol/L (98-107) 04/24/19 07:18 Carbon Dioxide 25 mmol/L (21-32) 04/24/19 07:18 Anion Gap 9 MMOL/L (8-16) 04/24/19 07:18 BUN 12.2 mg/dL (7-18) 04/24/19 07:18 Creatinine 0.7 mg/dL (0.55-1.3) 04/24/19 07:18 Random Glucose 124 mg/dL (74-106) H 04/24/19 07:18 Calcium 9.6 mg/dL (8.5-10.1) 04/24/19 07:18 Total Bilirubin 0.4 mg/dL (0.2-1) 04/24/19 07:18 AST 27 U/L (15-37) 04/24/19 07:18 ALT 25 U/L (13-61) 04/24/19 07:18 Alkaline Phosphatase 97 U/L (45-117) 04/24/19 07:18 Total Protein 6.8 g/dl (6.4-8.2) 04/24/19 07:18 Albumin 3.5 g/dl (3.4-5.0) 04/24/19 07:18 Current Medications Generic Name Dose Route Start Last Admin Trade Name Freq PRN Reason Stop Dose Admin Atorvastatin Calcium 40 mg 04/24/19 10:00 04/24/19 10:04 Lipitor - PO 40 mg DAILY RAZ Administration Carvedilol 3.125 mg 04/24/19 10:00 04/24/19 10:04 Coreg - PO 3.125 mg BID RAZ Administration Sodium Chloride 1,000 mls @ 100 mls/hr 04/23/19 22:00 04/23/19 22:30 Normal Saline - IV 100 mls/hr ASDIR RAZ Administration Insulin Aspart 1 vial 04/24/19 07:00 04/24/19 06:10 Novolog Vial Sliding Scale - SQ Not Given TIDAC [facility] Protocol Losartan Potassium 25 mg 04/24/19 10:00 04/24/19 10:04 Cozaar - PO 25 mg DAILY [facility] Administration Home Medications Medication Instructions Recorded Atorvastatin Ca [Lipitor] 40 mg PO DAILY 03/14/19 Metformin HCl [Glucophage] 750 mg PO DAILY 03/14/19 Aspirin [ASA -] 325 mg PO DAILY@0800 tablet 03/21/19 Carvedilol 3.125 mg PO BID 03/25/19 Losartan Potassium 25 mg PO DAILY 03/25/19 ASSESSMENT AND PLAN: Patient is a 53 year old female with PMH DM, HTN, and R knee arthroplasty (03/21) who presents with R knee pain x3 days. # s/p right knee pain improved, seen by Dr. Martinez.no need for oral antibiotics since no acute infection as per ortho and dc patient home. #HTN: cont home medications: carvedilol 3.125mg BID, losartan 25mg daily #DM2: continue home meds metformin 750mg
--- NOTE | 2019-04-24 13:33 | EKG ---
Test Reason : Blood Pressure : / mmHG Vent. Rate : 060 BPM Atrial Rate : 060 BPM P-R Int : 182 ms QRS Dur : 148 ms QT Int : 466 ms P-R-T Axes : 037 -56 188 degrees QTc Int : 466 ms NORMAL SINUS RHYTHM POSSIBLE LEFT ATRIAL ENLARGEMENT LEFT AXIS DEVIATION LEFT BUNDLE BRANCH BLOCK ABNORMAL ECG WHEN COMPARED WITH ECG OF 25-MAR-2019 16:20, NO SIGNIFICANT CHANGE WAS FOUND Confirmed by NATI LINDSAY MD ([id number]) on 04/24/2019 1:33:04 PM Referred By: Confirmed By:NATI LINDSAY MD
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
[2019-04-24 15:19] VITALS: BP 145/85; PULSE 60; TEMP 98
== END 2019-04-24 15:32 | disposition home or self-care (01) | DRG 948 ==
LOC: JER 16:03 → JERBED 18:00 → J6S 22:02
PROVIDERS: ADMIT Internal Medicine; ATTEND Internal Medicine
DX: G89.18 Other acute postprocedural pain (principal); E11.9 Type 2 diabetes mellitus without complications; I10 Essential (primary) hypertension; E66.3 Overweight; Z68.31 Body mass index [BMI] 31.0-31.9, adult; Z79.84 Long term (current) use of oral hypoglycemic drugs
CPT/HCPCS: 36415; 71045-TC-FY; 73564-TC-RT-FY; 80053; 81003; 82962; 83605; 83735; 84100; 85025; 85610; 85651; 85730; 86140; 86850; 86900; 86901; 87040; 93005; 93010; 99285-25; J0131; J7030

== ENCOUNTER 2019-12-20 18:20 | Emergency (ER) | payer OTHER ==
[2019-12-20 18:33] VITALS: BP 167/90; PULSE 75; TEMP 98.1; BMI 32.1
--- NOTE | 2019-12-20 18:57 | PDOC ---
History of Present Illness - General Chief Complaint: Pain Stated Complaint: STOOL PROBLEM Time Seen by Provider: 12/20/19 18:45 - History of Present Illness Initial Comments: 12/20/19 18:53 54-year-old female with a past medical history of diabetes and hypertension presents for evaluation after passing a polyp-like structure to her rectum. She has a past medical history of small bowel obstruction and resection. Past History - Medical History Allergies/Adverse Reactions: Allergies Allergy/AdvReac Type Severity Reaction Status Date / Time Tetanus Vaccines and Toxoid Allergy Severe Verified 04/23/19 16:16 [Tetanus] Home Medications: Ambulatory Orders Atorvastatin Ca [Lipitor] 40 mg PO DAILY 03/14/19 Metformin HCl [Glucophage] 750 mg PO DAILY 03/14/19 Aspirin [ASA -] 325 mg PO DAILY@0800 tablet 03/21/19 Carvedilol 3.125 mg PO BID 03/25/19 Losartan Potassium 25 mg PO DAILY 03/25/19 Anemia: No Asthma: No Cancer: No Cardiac Disorders: No CVA: No COPD: No CHF: No Dementia: No Diabetes: Yes GI Disorders: Yes (HX INTESTINAL OBSTR) Disorders: No HTN: Yes Hypercholesterolemia: Yes Liver Disease: No Seizures: No Thyroid Disease: No - Surgical History Abdominal Surgery: Yes (colectomy w/clips) Appendectomy: Yes Cardiac Surgery: No Cholecystectomy: Yes Lung Surgery: No Neurologic Surgery: No Orthopedic Surgery: Yes (RT KNEE MAKOPLASTY) - Reproductive History Is Patient Now?: No - Immunization History Immunization Up to Date: Yes - Psycho-Social/Smoking History Smoking Status: No Smoking History: Former smoker Have you smoked in the past 12 months: No Number of Cigarettes Smoked Daily: 0 If you are a former smoker, when did you quit?: 17 YEARS AGO Information on smoking cessation initiated: No - Substance Abuse Hx (Audit-C & DAST Scrn) How often the patient has a drink containing alcohol: 2-4 times / month Score: In Men: 4 or > Positive; In Women: 3 or > Positive: 2 Screen Result (Pos requires Nsg. Audit-10AR): Negative In the last yr the pt used illegal drug/Rx for NonMed reason: No Score: Yes response is considered Positive: 0 Screen Result (Positive result requires Nsg. DAST-10): Negative Review of Systems - Review of Systems Constitutional: No: Fever ABD/GI: Yes: See HPI *Physical Exam - Vital Signs Last Vital Signs Temp Pulse Resp BP Pulse Ox 98.1 F 75 20 167/90 100 12/20/19 18:22 12/20/19 18:22 12/20/19 18:22 12/20/19 18:22 12/20/19 18:22 - Physical Exam General Appearance: Yes: Appropriately Dressed. No: Apparent Distress HEENT: positive: Normal Voice, Symmetrical Neck: positive: Supple Respiratory/Chest: positive: Normal Breath Sounds. negative: Respiratory Distr ess Gastrointestinal/Abdominal: negative: Tender Musculoskeletal: positive: Normal Inspection Extremity: positive: Normal Inspection Integumentary: positive: Normal Color, Dry Neurologic: positive: director of corporate marketing II-XII NML intact, Fully Oriented Medical Decision Making - Medical Decision Making 12/20/19 18:55 Benign examination. Patient to follow-up with gastroenterology. She has an appointment but not till January. I will give her the names of 2 other stone lathe operator 1 being the on-call physician. I have reviewed the pathophysiology with the patient. They are in agreement with the treatment plan all questions were answered to their satisfaction. Understanding for follow-up without fail was also conveyed to the patient. Again they are in agreement. Discharge - Discharge Information Problems reviewed: Yes Clinical Impression/Diagnosis: Abnormal stool caliber Condition: Stable Disposition: HOME - Admission No - Follow up/Referral Referrals: Eddie Davis [Primary Care Provider] - Anthony Orellana DO [Staff Physician] - Shubham Castillo MD [Staff Physician] - - Patient Discharge Instructions Additional Instructions: Return to the emergency room for further issues and without fail follow-up with gastroenterology in 1 to 2 days for further evaluation and treatment options. - Post Discharge Activity
== END 2019-12-20 19:00 | disposition home or self-care (01) ==
LOC: JER 18:20
DX: R19.5 Other fecal abnormalities (principal)
CPT/HCPCS: 99283-25

== ENCOUNTER 2020-05-25 18:24 | Emergency (ER) | payer OTHER ==
[2020-05-25 18:38] VITALS: BP 147/72; PULSE 88; TEMP 98.8; BMI 29.7
[2020-05-25] MEDS ORDERED: CYCLOBENZAPRINE HCL 10 MG TABLET (FP) PO ONE (18:53)
[2020-05-25] MEDS ORDERED: CYCLOBENZAPRINE HCL 10 MG TABLET (FP) ONE (19:03)
== END 2020-05-25 21:56 | disposition home or self-care (01) ==
LOC: JERFT 18:24
DX: S16.1XXA Strain of muscle, fascia and tendon at neck level, initial encounter (principal); M54.6 Pain in thoracic spine
CPT/HCPCS: 72125-TC; 72128-TC; 73562-TC-LT-FY; 73562-TC-RT-FY; 99285-25

== ENCOUNTER 2021-08-04 20:16 | Emergency (ER) | payer OTHER ==
[2021-08-04 20:23] VITALS: BP 154/94; PULSE 87; TEMP 98.1; BMI 31.3
[2021-08-04] MEDS ORDERED: IBUPROFEN 400 MG TABLET (FP) PO ONE ×2 (22:02→22:05)
== END 2021-08-04 22:08 | disposition home or self-care (01) ==
LOC: JERFT 20:16
DX: S60.031A Contusion of right middle finger without damage to nail, initial encounter (principal); S61.212A Laceration without foreign body of right middle finger without damage to nail, initial encounter; W23.1XXA Caught, crushed, jammed, or pinched between stationary objects, initial encounter
CPT/HCPCS: 73140-TC-RT-FY; 99283-25

== ENCOUNTER 2022-01-21 11:49 | Emergency (ER) | payer OTHER ==
[2022-01-21 12:33] VITALS: BP 145/100; PULSE 79; RESP 20; TEMP 98.6; BMI 31.0
[2022-01-21] MEDS ORDERED: NAPROXEN 500 MG TABLET PO ONE (14:09)
[2022-01-21] MEDS ORDERED: NAPROXEN 500 MG TABLET ONE (14:18)
[2022-01-21 14:54] LABS: BASO % 0.8 % (0-2.0); EOS % 2.3 % (0-4.5); HEMATOCRIT 42.2 % (32.4-45.2); HEMOGLOBIN 14.3 GM/dL (10.7-15.3); LYMPH % 44.5 % (8-40); MCH 29.9 pg (25.7-33.7); MCHC 33.9 g/dl (32.0-36.0); MEAN CELL VOLUME 88.1 fl (80-96); MEAN PLT VOLUME 7.8 fl (7.5-11.1); MONO % 5.5 % (3.8-10.2); NEUT % 46.9 % (42.8-82.8); PLATELET COUNT 325 10^3/uL (134-434); RBC 4.79 M/mm3 (3.60-5.2); RDW 13.3 % (11.6-15.6); WHITE BLOOD COUNT 7.6 K/mm3 (4.0-10.0)
[2022-01-21 15:26] LABS: ALBUMIN 4.2 g/dl (3.4-5.0); CALCIUM 9.8 mg/dL (8.5-10.1)
[2022-01-21 15:28] LABS: URIC ACID 8.1 mg/dL (2.6-7.2)
[2022-01-21 15:29] LABS: CREATININE 0.8 mg/dL (0.55-1.3)
[2022-01-21 15:30] LABS: BILIRUBIN,TOTAL 1.1 mg/dL (0.2-1); TOT PROT 8.3 g/dl (6.4-8.2)
[2022-01-21] MEDS ORDERED: COLCHICINE 0.6 MG TAB PO ONE (16:15)
[2022-01-21] MEDS ORDERED: COLCHICINE 0.6 MG TAB ONE (16:18)
== END 2022-01-21 16:38 | disposition home or self-care (01) ==
LOC: JERFT 11:49
DX: M25.562 Pain in left knee (principal); M79.672 Pain in left foot
CPT/HCPCS: 36415; 73560-TC-LT-FY; 73630-TC-LT; 80053; 84550; 85025; 99284-25